=== PATIENT | female | born 1935 | race Caucasian/White ===

== ENCOUNTER 2016-06-18 19:10 | Inpatient (IN) | payer MEDICARE, BC ==
[2016-06-18] MEDS ORDERED: ACETAMINOPHEN TAB 325 MG TAB PO STA (19:29)
[2016-06-18] MEDS ORDERED: ALPRAZolam 0.25 MG TAB PO STA (19:31)
[2016-06-18] MEDS ORDERED: SODIUM CHLORIDE 0.9% 1,000 ML IV STA (19:31)
[2016-06-18] MEDS ORDERED: IPRATROPIUM-ALBUTEROL 3 ML NEB INHALATION STA (19:32)
--- NOTE | 2016-06-18 19:37 | ED ---
General Adult HPI - General Chief complaint: Shortness of Breath Stated complaint: maximiliano Time Seen by Provider: 06/18/16 19:23 Source: patient, family, EMS, RN notes reviewed Mode of arrival: EMS Limitations: no limitations - History of Present Illness Initial comments: Patient is a pleasant 81-year-old female presenting to the emergency department with difficulty in breathing. Onset was just today. Patient does have cough. Patient complains of chest congestion however cough is not productive. Patient was sweaty earlier. Patient has some mild tightness in her chest. No rhinorrhea. No leg pain or leg swelling. - Related Data Home Medications Medication Instructions Recorded Confirmed Budesonide [Pulmicort] 0.5 mg INHALATION RT-BID 08/22/13 01/29/16 Citalopram Hydrobromide [CeleXA] 10 mg PO DAILY 08/22/13 01/29/16 Diazepam [Valium] 15 mg PO HS PRN 08/22/13 01/29/16 Levothyroxine Sodium [Levoxyl] 50 mcg PO DAILY 08/22/13 01/29/16 Rivaroxaban [Xarelto] 20 mg PO DAILY 08/22/13 01/29/16 Spironolactone [Aldactone] 25 mg PO DAILY 08/22/13 01/29/16 Epinastine Eye Drops 1 drop BOTH EYES BID 01/29/16 01/29/16 Sucralfate [Carafate] 1 gm PO QID 01/29/16 01/29/16 Bumetanide [BUMEX] 1 mg PO SUTUTHSA 01/30/16 01/30/16 Bumetanide [Bumex] 2 mg PO MOWEFR 06/18/16 06/18/16 Polyethylene Glycol 3350 [Miralax] 17 gm PO HS 06/18/16 06/18/16 cloNIDine HCL [Catapres] 0.1 mg PO DAILY PRN 06/18/16 06/18/16 Previous Rx's Medication Instructions Recorded Nitroglycerin Sl Tabs [Nitrostat] 0.4 mg SUBLINGUAL Q5M PRN #25 tab 02/02/16 Allergies Allergy/AdvReac Type Severity Reaction Status Date / Time albuterol [From DuoNeb] Allergy Itching Verified 06/18/16 19:43 ampicillin Allergy Unknown Verified 06/18/16 19:43 aspirin Allergy Nausea & Verified 06/18/16 19:43 Vomiting atenolol [From Tenormin] Allergy Unknown Verified 06/18/16 19:43 atorvastatin calcium Allergy Unknown Verified 06/18/16 19:43 [From Lipitor] budesonide [From Symbicort] Allergy Itching Verified 06/18/16 19:43 ezetimibe [From Zetia] Allergy Unknown Verified 06/18/16 19:43 fluoxetine HCl [From Prozac] Allergy Unknown Verified 06/18/16 19:43 fluticasone Allergy Itching Verified 06/18/16 19:43 [From Advair Diskus] formoterol [From Symbicort] Allergy Itching Verified 06/18/16 19:43 ipratropium [From DuoNeb] Allergy Itching Verified 06/18/16 19:43 metoprolol tartrate Allergy Unknown Verified 06/18/16 19:43 [From Lopressor] mirtazapine Allergy Unknown Verified 06/18/16 19:43 morphine Allergy Unknown Verified 06/18/16 19:43 oxycodone [Oxycodone] Allergy Unknown Verified 06/18/16 19:43 oxycodone HCl [From Percocet] Allergy Unknown Verified 06/18/16 19:43 propranolol HCl Allergy Unknown Verified 06/18/16 19:43 [From Inderal LA] salmeterol Allergy Itching Verified 06/18/16 19:43 [From Advair Diskus] Sulfa (Sulfonamide Allergy Unknown Verified 06/18/16 19:43 Antibiotics) verapamil [Verapamil] Allergy Unknown Verified 06/18/16 19:43 Review of Systems ROS Statement: Those systems with pertinent positive or pertinent negative responses have been documented in the HPI. ROS Other: All systems not noted in ROS Statement are negative. Constitutional: Reports: chills Eyes: Denies: eye pain ENT: Denies: ear pain Respiratory: Reports: cough, dyspnea Cardiovascular: Reports: chest pain Endocrine: Reports: fatigue Gastrointestinal: Denies: abdominal pain Genitourinary: Denies: dysuria Musculoskeletal: Denies: back pain Skin: Denies: rash Neurological: Denies: weakness Past Medical History Past Medical History: Atrial Fibrillation, Heart Failure, COPD, Hypertension, Thyroid Disorder Last Myocardial Infarction Date:: 1985 History of Any Multi-Drug Resistant Organisms: None Reported Past Surgical History: Back Surgery, Cholecystectomy, Hernia Repair, Hysterectomy Additional Past Surgical History / Comment(s): tear duct surg Past Anesthesia/Blood Transfusion Reactions: No Reported Reaction Past Psychological History: Anxiety, Depression Smoking Status: Former smoker Past Alcohol Use History: None Reported Past Drug Use History: None Reported - Past Family History Mother Family Medical History: Diabetes Mellitus, Hypertension General Exam Limitations: no limitations General appearance: alert, in no apparent distress Head exam: Present: atraumatic Eye exam: Present: normal appearance, PERRL ENT exam: Present: normal oropharynx Neck exam: Present: normal inspection Respiratory exam: Present: decreased breath sounds Cardiovascular Exam: Present: tachycardia, irregular rhythm GI/Abdominal exam: Present: soft. Absent: tenderness Extremities exam: Present: normal inspection Neurological exam: Present: alert Psychiatric exam: Present: normal affect, normal mood Skin exam: Absent: rash Course Vital Signs 06/18/16 06/18/16 06/18/16 19:12 20:44 20:54 Temperature 99.3 F Pulse Rate 59 L 97 110 H Respiratory 20 Rate Blood Pressure 184/91 O2 Sat by Pulse 92 L Oximetry 06/18/16 06/18/16 06/18/16 21:00 21:39 22:56 Temperature Pulse Rate 95 95 92 Respiratory 20 18 18 Rate Blood Pressure 128/71 142/74 142/77 O2 Sat by Pulse 95 96 95 Oximetry EKG Findings - EKG Comments: EKG Findings:: A. fib with RVR, rate 122. QRS 100. QT 304. QTC 433. Normal axis. LVH criteria. Septal Q waves. Lateral ST depression. Medical Decision Making - Medical Decision Making Patient reevaluated. Patient and family updated. Case discussed again with Dr. Alvarez, who will admit his patient with cardiology consult. - Lab Data Result diagrams: 06/18/16 19:37 06/18/16 19:37 Lab Results 06/18/16 06/18/16 06/18/16 Range/Units 19:37 19:37 19:37 WBC 9.2 (3.8-10.6) k/uL RBC 5.12 (3.80-5.40) m/uL Hgb 14.5 (11.4-16.0) gm/dL Hct 45.5 (34.0-46.0) % MCV 88.9 (80.0-100.0) fL MCH 28.2 (25.0-35.0) pg MCHC 31.7 (31.0-37.0) g/dL RDW 16.4 H (11.5-15.5) % Plt Count 139 L (150-450) k/uL Neutrophils % (Manual) 70.0 % Lymphocytes % (Manual) 18.0 % Monocytes % (Manual) 11.0 % Eosinophils % (Manual) 1.0 % Neutrophils # (Manual) 6.4 (1.3-7.7) k/uL Lymphocytes # (Manual) 1.7 (1.0-4.8) k/uL Monocytes # (Manual) 1.0 (0-1.0) k/uL Eosinophils # (Manual) 0.1 (0-0.7) k/uL Nucleated RBCs 0 (0-0) /100 WBC Manual Slide Review Performed Anisocytosis Slight PT (9.0-12.0) sec INR (<1.1) APTT (22.0-30.0) sec Sodium 139 (137-145) mmol/L Potassium 3.9 (3.5-5.1) mmol/L Chloride 99 (98-107) mmol/L Carbon Dioxide 24 (22-30) mmol/L Anion Gap 16 mmol/L BUN 36 H (7-17) mg/dL Creatinine 1.00 (0.52-1.04) mg/dL Est GFR (MDRD) Af Amer >60 (>60 ml/min/1.73 sqM) Est GFR (MDRD) Non-Af 53 (>60 ml/min/1.73 sqM) Glucose 151 H (74-99) mg/dL Plasma Lactic Acid Mason (0.7-2.0) mmol/L Calcium 9.8 (8.4-10.2) mg/dL Total Bilirubin 1.0 (0.2-1.3) mg/dL AST 28 (14-36) U/L ALT 40 (9-52) U/L Alkaline Phosphatase 114 (38-126) U/L Total Creatine Kinase 47 (30-135) U/L CK-MB (CK-2) 1.1 (0.0-2.4) ng/mL CK-MB (CK-2) Rel Index 2.3 Troponin I <0.012 (0.000-0.034) ng/mL NT-Pro-B Natriuret Pep pg/mL Total Protein 6.6 (6.3-8.2) g/dL Albumin 3.8 (3.5-5.0) g/dL Cortisol 117 ug/dL Urine Color Urine Appearance (Clear) Urine pH (5.0-8.0) Ur Specific Melville (1.001-1.035) Urine Protein (Negative) Urine Glucose (UA) (Negative) Urine Ketones (Negative) Urine Blood (Negative) Urine Nitrite (Negative) Urine Bilirubin (Negative) Urine Urobilinogen (<2.0) mg/dL Ur Leukocyte Esterase (Negative) Urine RBC (0-5) /hpf Urine WBC (0-5) /hpf Hyaline Casts (0-2) /lpf Urine Mucus (None) /hpf Influenza Type A RNA (Not Detectd) Influenza Type B (PCR) (Not Detectd) 06/18/16 06/18/16 06/18/16 Range/Units 19:37 19:37 20:01 WBC (3.8-10.6) k/uL RBC (3.80-5.40) m/uL Hgb (11.4-16.0) gm/dL Hct (34.0-46.0) % MCV (80.0-100.0) fL MCH (25.0-35.0) pg MCHC (31.0-37.0) g/dL RDW (11.5-15.5) % Plt Count (150-450) k/uL Neutrophils % (Manual) % Lymphocytes % (Manual) % Monocytes % (Manual) % Eosinophils % (Manual) % Neutrophils # (Manual) (1.3-7.7) k/uL Lymphocytes # (Manual) (1.0-4.8) k/uL Monocytes # (Manual) (0-1.0) k/uL Eosinophils # (Manual) (0-0.7) k/uL Nucleated RBCs (0-0) /100 WBC Manual Slide Review Anisocytosis PT 12.0 (9.0-12.0) sec INR 1.2 (<1.1) APTT 29.1 (22.0-30.0) sec Sodium (137-145) mmol/L Potassium (3.5-5.1) mmol/L Chloride (98-107) mmol/L Carbon Dioxide (22-30) mmol/L Anion Gap mmol/L BUN (7-17) mg/dL Creatinine (0.52-1.04) mg/dL Est GFR (MDRD) Af Amer (>60 ml/min/1.73 sqM) Est GFR (MDRD) Non-Af (>60 ml/min/1.73 sqM) Glucose (74-99) mg/dL Plasma Lactic Acid Mason 2.7 H* (0.7-2.0) mmol/L Calcium (8.4-10.2) mg/dL Total Bilirubin (0.2-1.3) mg/dL AST (14-36) U/L ALT (9-52) U/L Alkaline Phosphatase (38-126) U/L Total Creatine Kinase (30-135) U/L CK-MB (CK-2) (0.0-2.4) ng/mL CK-MB (CK-2) Rel Index Troponin I (0.000-0.034) ng/mL NT-Pro-B Natriuret Pep 4750 pg/mL Total Protein (6.3-8.2) g/dL Albumin (3.5-5.0) g/dL Cortisol ug/dL Urine Color Urine Appearance (Clear) Urine pH (5.0-8.0) Ur Specific Melville (1.001-1.035) Urine Protein (Negative) Urine Glucose (UA) (Negative) Urine Ketones (Negative) Urine Blood (Negative) Urine Nitrite (Negative) Urine Bilirubin (Negative) Urine Urobilinogen (<2.0) mg/dL Ur Leukocyte Esterase (Negative) Urine RBC (0-5) /hpf Urine WBC (0-5) /hpf Hyaline Casts (0-2) /lpf Urine Mucus (None) /hpf Influenza Type A RNA (Not Detectd) Influenza Type B (PCR) (Not Detectd) 06/18/16 06/18/16 06/18/16 Range/Units 20:01 20:01 23:32 WBC (3.8-10.6) k/uL RBC (3.80-5.40) m/uL Hgb (11.4-16.0) gm/dL Hct (34.0-46.0) % MCV (80.0-100.0) fL MCH (25.0-35.0) pg MCHC (31.0-37.0) g/dL RDW (11.5-15.5) % Plt Count (150-450) k/uL Neutrophils % (Manual) % Lymphocytes % (Manual) % Monocytes % (Manual) % Eosinophils % (Manual) % Neutrophils # (Manual) (1.3-7.7) k/uL Lymphocytes # (Manual) (1.0-4.8) k/uL Monocytes # (Manual) (0-1.0) k/uL Eosinophils # (Manual) (0-0.7) k/uL Nucleated RBCs (0-0) /100 WBC Manual Slide Review Anisocytosis PT (9.0-12.0) sec INR (<1.1) APTT (22.0-30.0) sec Sodium (137-145) mmol/L Potassium (3.5-5.1) mmol/L Chloride (98-107) mmol/L Carbon Dioxide (22-30) mmol/L Anion Gap mmol/L BUN (7-17) mg/dL Creatinine (0.52-1.04) mg/dL Est GFR (MDRD) Af Amer (>60 ml/min/1.73 sqM) Est GFR (MDRD) Non-Af (>60 ml/min/1.73 sqM) Glucose (74-99) mg/dL Plasma Lactic Acid Mason 2.6 H* (0.7-2.0) mmol/L Calcium (8.4-10.2) mg/dL Total Bilirubin (0.2-1.3) mg/dL AST (14-36) U/L ALT (9-52) U/L Alkaline Phosphatase (38-126) U/L Total Creatine Kinase (30-135) U/L CK-MB (CK-2) (0.0-2.4) ng/mL CK-MB (CK-2) Rel Index Troponin I (0.000-0.034) ng/mL NT-Pro-B Natriuret Pep pg/mL Total Protein (6.3-8.2) g/dL Albumin (3.5-5.0) g/dL Cortisol ug/dL Urine Color Yellow Urine Appearance Cloudy H (Clear) Urine pH 5.0 (5.0-8.0) Ur Specific Melville 1.009 (1.001-1.035) Urine Protein Trace H (Negative) Urine Glucose (UA) Negative (Negative) Urine Ketones Negative (Negative) Urine Blood Negative (Negative) Urine Nitrite Negative (Negative) Urine Bilirubin Negative (Negative) Urine Urobilinogen <2.0 (<2.0) mg/dL Ur Leukocyte Esterase Negative (Negative) Urine RBC 2 (0-5) /hpf Urine WBC <1 (0-5) /hpf Hyaline Casts 3 H (0-2) /lpf Urine Mucus Rare H (None) /hpf Influenza Type A RNA Not Detected (Not Detectd) Influenza Type B (PCR) Not Detected (Not Detectd) - Radiology Data Radiology results: image reviewed (Chest x-ray shows CHF) Disposition Clinical Impression: Congestive heart failure Disposition: ADMITTED IP TO THIS HOSP
[2016-06-18 19:46] LABS: Anisocytosis Slight; Aty Lym Flag Slight; CHCM 31.7; HCT 45.5 % (34.0-46.0); HDW 2.48; HGB 14.5 gm/dL (11.4-16.0); MCH 28.2 pg (25.0-35.0); MCHC 31.7 g/dL (31.0-37.0); MCV 88.9 fL (80.0-100.0); Mean Platelet Volume 8.5; RBC 5.12 m/uL (3.80-5.40); RDW 16.4 % (11.5-15.5); WBC 9.2 k/uL (3.8-10.6); WBC (Perox) 8.96
[2016-06-18 20:03] LABS: INR 1.2 (<1.1); Partial Thromboplastin Time 29.1 sec (22.0-30.0)
[2016-06-18 20:08] LABS: Creatine Kinase 47 U/L (30-135)
[2016-06-18 20:09] LABS: ALT 40 U/L (9-52); AST 28 U/L (14-36); Alkaline Phosphatase 114 U/L (38-126); Anion Gap 16 mmol/L; Blood Urea Nitrogen 36 mg/dL (7-17); Calcium 9.8 mg/dL (8.4-10.2); Carbon Dioxide 24 mmol/L (22-30); Chloride 99 mmol/L (98-107); Glucose 151 mg/dL (74-99); Non-African American GFR(MDRD) 53 (>60 ml/min/1.73 sqM); Potassium 3.9 mmol/L (3.5-5.1); Sodium 139 mmol/L (137-145); Total Protein 6.6 g/dL (6.3-8.2)
[2016-06-18 20:20] LABS: Creatine Kinase MB 1.1 ng/mL (0.0-2.4); Troponin I <0.012 ng/mL (0.000-0.034)
[2016-06-18 20:30] LABS: Appearance,Urine Cloudy (Clear); Bilirubin,Urine Negative (Negative); Glucose,Urine (UA) Negative (Negative); Ketones,Urine Negative (Negative); Leukocyte Esterase,Urine Negative (Negative); Mucus,Urine Rare /hpf; Nitrite,Urine Negative (Negative); Particle Count 1743; Protein,Urine Trace (Negative); RBC,Urine 2 /hpf (0-5); Specific Gravity,Urine 1.009 (1.001-1.035); UA Billing (MACRO vs. MICRO) MICRO; Urobilinogen,Urine <2.0 mg/dL (<2.0); WBC,Urine <1 /hpf (0-5)
[2016-06-18] MEDS ORDERED: ALBUTEROL NEBULIZED 2.5 MG/3 ML INHALATION STA (20:40)
--- NOTE | 2016-06-18 20:47 | XR ---
EXAMINATION TYPE: XR chest 2V DATE OF EXAM: 06/18/2016 8:29 PM COMPARISON: 01/29/2016 HISTORY: 01/29/2016 TECHNIQUE: Frontal and lateral views of the chest are obtained. FINDINGS: Senescent changes are noted. There is subtle evidence of a new reticular pattern bilateral ly, this pattern silhouettes the pulmonary vasculature to a mild/moderate degree and is compatible wi th a clinical diagnosis of interstitial phase pulmonary edema. Given the moderately enlarged chronic silhouette, cardiogenic pulmonary edema is suggested. There is no atelectasis or focal lung consolidation, but the interstitial pattern could also represen t infection if clinically corroborated. There is no pleural effusion or pneumothorax. The cardiac silhouette size is within normal limits. The osseous structures are intact. IMPRESSION: SUSPECT MILD-MODERATE INTERSTITIAL PHASE CARDIOGENIC PULMONARY EDEMA.
[2016-06-18 20:54] LABS: Add Differential Manual Differential
[2016-06-18 20:57] LABS: Manual Review Performed; Nucleated Red Blood Cells 0 /100 WBC (0-0); Total Cells Counted 100
[2016-06-18] MEDS ORDERED: ONDANSETRON 4 MG/2 ML VIAL IM STA (22:07)
[2016-06-18] MEDS ORDERED: FUROSEMIDE 10 MG/ML 4 ML VIAL IV STA (22:38)
[2016-06-19] MEDS ORDERED: ASPIRIN 325 MG TAB PO STA (00:27)
[2016-06-19] MEDS: NITROGLYCERIN OINT 1 INCH/GM PACKET TOPICAL SCH ×5 (01:05→20:33)
[2016-06-19] MEDS: FUROSEMIDE 10 MG/ML 4 ML VIAL IV SCH ×2 (01:05→13:03)
[2016-06-19] MEDS: POLYETHYLENE GLYCOL 3350 17 GM POWD.PACK PO SCH ×2 (03:28→20:32)
[2016-06-19 03:37] LABS: Troponin I 0.012 ng/mL (0.000-0.034)
[2016-06-19] MEDS ORDERED: DIAZEPAM 5 MG TAB PO PRN (03:45)
[2016-06-19] MEDS ORDERED: BUMETANIDE 1 MG TAB PO SCH ×2 (03:45→09:00)
[2016-06-19] MEDS ORDERED: cloNIDine HCL 0.1 MG TAB PO PRN (03:45)
[2016-06-19 07:42] LABS: Creatine Kinase 49 U/L (30-135)
[2016-06-19 07:53] LABS: Creatine Kinase MB 1.1 ng/mL (0.0-2.4); Troponin I <0.012 ng/mL (0.000-0.034)
[2016-06-19] MEDS: BUDESONIDE 0.5 MG/2 ML NEBU INHALATION SCH ×2 (08:26→20:19)
[2016-06-19] MEDS ORDERED: [UNRECOGNIZED DRUG - OTHER] BOTH EYES SCH (09:00)
[2016-06-19] MEDS ORDERED: RIVAROXABAN 10 MG TAB PO SCH (09:00)
[2016-06-19] MEDS: SUCRALFATE 1 GM TAB PO SCH ×4 (09:38→20:34)
[2016-06-19] MEDS: CITALOPRAM HYDROBROMIDE 10 MG TAB PO SCH (09:38)
[2016-06-19] MEDS: ASPIRIN 325 MG TAB PO SCH (09:39)
[2016-06-19] MEDS: LEVOTHYROXINE 50 MCG TAB PO SCH (09:40)
[2016-06-19] MEDS: SPIRONOLACTONE 25 MG TAB PO SCH (09:40)
--- NOTE | 2016-06-19 12:42 | CONS ---
DATE OF CONSULTATION: Mrs. Faith is an 81-year-old female who came to the emergency room with the complaint of difficulty in breathing. She does have some cough, denies any fever or chills. Patient was found to be in heart failure. This patient has a history of severe COPD, chronic atrial fibrillation and mild nonobstructive pulmonary artery disease. Home medications included Pulmicort, Valium, Xarelto, Aldactone, Bumex, clonidine. Patient's allergies are reviewed. Past medical history includes back surgery, cholecystectomy, hernia repair, hysterectomy, chronic atrial fibrillation, COPD, and heart failure. Physical examination at present reveals an 81-year-old female who is thinly-built, has severe kyphoscoliosis. She is comfortable, not in any acute respiratory distress at present. The patient's heart rate at present is 90 to 100/min. Blood pressure is 126/69 mmHg, patient is afebrile. HEENT examination is negative. Neck is supple. There is no increase in jugular venous pressure. Both the carotid pulses are felt. There is no bruit. Chest is symmetrical. HEART: The PMI is not felt. First and second heart sounds are normal. Lung examination reveals bilateral crackles. Abdomen is soft. EXTREMITIES: There is no evidence of any leg edema. Chest x-ray is suggestive of congestive heart failure with possible interstitial pulmonary fibrosis cannot be entirely excluded. Patient's proBNP level is 4750. FINAL IMPRESSION: 1. This patient is admitted with symptoms of shortness of breath, which is secondary to a combination of congestive heart failure and COPD. 2. Atrial fibrillation with a moderately rapid ventricular response. 3. History of coronary artery disease, which was mild in the past. RECOMMENDATIONS: I will add Lopressor 25 mg b.i.d. to control the rate, continue the rest of the medications. Patient's echo and Doppler study will be done.
[2016-06-19] MEDS: ONDANSETRON 4 MG/2 ML VIAL IVP PRN (13:00)
[2016-06-19] MEDS: IPRATROPIUM BROMIDE 0.06% NASAL SPRAY (15 ML) NASAL SCH ×2 (13:00→20:32)
--- NOTE | 2016-06-19 13:59 | P.HPIM ---
History of Present Illness H&P Date: 06/19/16 Chief Complaint: Difficulty breathing This is an 81-year-old female patient of Dr. Alvarez. She has underlying history of chronic atrial fibrillation, COPD, chronic diastolic heart failure, hypothyroidism and hypertension, essential tremor, chronic hypoxic respiratory failure with home O2 dependence, pulmonary fibrosis. Patient states that she had shortness of breath that started a couple days ago with cough that was nonproductive. She states she felt tired and weak and nauseated and achy all over. She denies any weight loss. Patient presented to [facility] emergency center. Initial blood pressure was 184/ 91 and EKG showed A. fib with RVR at a rate of 122. Chest x-ray showed suspected mild to moderate interstitial cardiogenic pulmonary edema. Blood cultures were obtained. Platelet count was 139. No leukocytosis. Lactic acid was 2.7, 2.6 and 2.9. Troponins have been negative on 3 draws. Urinalysis was cloudy, nitrate and leukoesterase negative. Influenza A and B negative. Patient was admitted to the selective care unit for acute heart failure and started on Lasix 40 mg IV every 12 hours and cardiology consult requested. Review of Systems All systems: negative Constitutional: Reports fatigue, Reports sweats, Reports weakness, Denies chills , Denies fever Eyes: denies blurred vision, denies pain Ears, nose, mouth and throat: Denies headache, Denies sore throat Cardiovascular: Reports shortness of breath, Denies chest pain, Denies leg edema Respiratory: Reports cough, Reports dyspnea, Reports home oxygen, Denies cough with sputum, Denies excessive sputum, Denies hemoptysis Gastrointestinal: Reports nausea, Denies abdominal pain, Denies diarrhea, Denies vomiting Genitourinary: Denies dysuria, Denies hematuria Musculoskeletal: Denies myalgias Integumentary: Denies pruritus, Denies rash Neurological: Denies numbness, Denies weakness Psychiatric: Denies anxiety, Denies depression Endocrine: Denies fatigue, Denies weight change Past Medical History Past Medical History: Atrial Fibrillation, Heart Failure, COPD, Hypertension, Myocardial Infarction (CT), Thyroid Disorder Last Myocardial Infarction Date:: 1985 History of Any Multi-Drug Resistant Organisms: None Reported Past Surgical History: Back Surgery, Cholecystectomy, Hernia Repair, Hysterectomy Additional Past Surgical History / Comment(s): tear duct surg Past Anesthesia/Blood Transfusion Reactions: No Reported Reaction Past Psychological History: Anxiety, Depression Smoking Status: Former smoker Past Alcohol Use History: None Reported Additional Past Alcohol Use History / Comment(s): She was a smoker one pack per day for 30-40 years and quit 45 years ago. No illicit drug use or alcohol use. Patient lives at home and her son and [id number] live with her. She has a walker and cane which she uses occasionally. She also has home O2 and nebulizer. Past Drug Use History: None Reported - Past Family History Mother Family Medical History: Diabetes Mellitus, Hypertension Additional Family Medical History / Comment(s): Mother at age 65 with history of diabetes and hypertension. Father Additional Family Medical History / Comment(s): Father at age 64 from unknown cancer. Brother(s) Additional Family Medical History / Comment(s): Patient has 2 half brothers that during war. She does not have any sisters. Son(s) Additional Family Medical History / Comment(s): She has one son with no major medical problems. Medications and Allergies Home Medications Medication Instructions Recorded Confirmed Type Budesonide [Pulmicort] 0.5 mg INHALATION RT-BID 08/22/13 06/19/16 History Citalopram Hydrobromide [CeleXA] 10 mg PO DAILY 08/22/13 06/19/16 History Diazepam [Valium] 15 mg PO HS PRN 08/22/13 06/19/16 History Levothyroxine Sodium [Levoxyl] 50 mcg PO DAILY 08/22/13 06/19/16 History Rivaroxaban [Xarelto] 20 mg PO DAILY 08/22/13 06/19/16 History Spironolactone [Aldactone] 25 mg PO DAILY 08/22/13 06/19/16 History Epinastine Eye Drops 1 drop BOTH EYES BID 01/29/16 06/19/16 History Sucralfate [Carafate] 1 gm PO QID 01/29/16 06/19/16 History Bumetanide [BUMEX] 1 mg PO SUTUTHSA 01/30/16 06/19/16 History Bumetanide [Bumex] 2 mg PO MOWEFR 06/18/16 06/19/16 History Polyethylene Glycol 3350 [Miralax] 17 gm PO HS 06/18/16 06/19/16 History cloNIDine HCL [Catapres] 0.1 mg PO DAILY PRN 06/18/16 06/19/16 History Allergies Allergy/AdvReac Type Severity Reaction Status Date / Time albuterol [From DuoNeb] Allergy Itching Verified 06/18/16 19:43 ampicillin Allergy Unknown Verified 06/18/16 19:43 aspirin Allergy Nausea & Verified 06/18/16 19:43 Vomiting atenolol [From Tenormin] Allergy Unknown Verified 06/18/16 19:43 atorvastatin calcium Allergy Unknown Verified 06/18/16 19:43 [From Lipitor] budesonide [From Symbicort] Allergy Itching Verified 06/18/16 19:43 ezetimibe [From Zetia] Allergy Unknown Verified 06/18/16 19:43 fluoxetine HCl [From Prozac] Allergy Unknown Verified 06/18/16 19:43 fluticasone Allergy Itching Verified 06/18/16 19:43 [From Advair Diskus] formoterol [From Symbicort] Allergy Itching Verified 06/18/16 19:43 ipratropium [From DuoNeb] Allergy Itching Verified 06/18/16 19:43 metoprolol tartrate Allergy Unknown Verified 06/18/16 19:43 [From Lopressor] mirtazapine Allergy Unknown Verified 06/18/16 19:43 morphine Allergy Unknown Verified 06/18/16 19:43 oxycodone [Oxycodone] Allergy Unknown Verified 06/18/16 19:43 oxycodone HCl [From Percocet] Allergy Unknown Verified 06/18/16 19:43 propranolol HCl Allergy Unknown Verified 06/18/16 19:43 [From Inderal LA] salmeterol Allergy Itching Verified 06/18/16 19:43 [From Advair Diskus] Sulfa (Sulfonamide Allergy Unknown Verified 06/18/16 19:43 Antibiotics) verapamil [Verapamil] Allergy Unknown Verified 06/18/16 19:43 Physical Exam Vitals: Vital Signs Temp Pulse Pulse Resp BP BP Pulse Ox 06/19/16 08:33 100 06/19/16 02:19 18 06/19/16 02:16 98.2 F 70 18 135/67 96 06/19/16 01:01 87 18 137/73 94 L Intake and Output 06/18/16 06/19/16 06/19/16 22:59 06:59 14:59 Intake Total 200 298 Output Total 250 Balance -50 298 Intake: Oral 200 298 Output: Urine 250 Other: Voiding Method Bedside Commode Weight 42.4 kg General appearance: cooperative, no acute distress, thin. negative: average body habitus, disheveled, mild distress, morbidly obese, obese, severe distress - EENT Eyes: Reports anicteric sclerae, Reports PERRLA, Reports dentition normal, Reports poor dentition ENT: Reports hard of hearing, Reports NA/AT, Reports normal oropharynx, Denies hearing grossly normal, Denies other, Denies pharyngeal erythema, Denies thrush , Denies tonsillar exudates, Denies tonsillar swelling - Neck Neck: Reports normal ROM, Denies lymphadenopathy, Denies other, Denies rigidity , Denies stridor, Denies thyromegaly - Respiratory Respiratory: bilateral: CTA, diminished, negative: dullness, rales, rhonchi, wheezing, prolonged expiration - Cardiovascular Rhythm: regular Heart sounds: normal: S1, S2 Abnormal Heart Sounds: Reports systolic murmur, Denies diastolic murmur, Denies rub, Denies S3 Gallop, Denies S4 Gallop, Denies click, Denies other - Gastrointestinal General gastrointestinal: Reports normal bowel sounds, Reports soft, Denies absent bowel sounds, Denies decreased bowel sounds, Denies distended, Denies hepatomegaly, Denies hyperactive bowel sounds, Denies organomegaly, Denies rigid , Denies scaphoid, Denies splenomegaly, Denies tenderness, Denies umbilical hernia, Denies ventral hernia - Integumentary Integumentary: Reports normal, Reports normal turgor - Neurologic Neurologic: CNII-XII intact, focal deficits (none) - Musculoskeletal Musculoskeletal: Reports generalized weakness (tremors generalized) - Psychiatric Psychiatric: Reports A&O x's 3, Reports appropriate affect, Reports intact judgment & insight Results CBC & Chem 7: 06/18/16 19:37 06/18/16 19:37 Labs: Abnormal Lab Results - Last 24 Hours (Table) 06/19/16 Range/Units 02:51 Plasma Lactic Acid Mason 2.9 H* (0.7-2.0) mmol/L Thrombosis Risk Factor Assmnt - DVT/VTE Prophylaxis DVT/VTE Prophylaxis: Pharmacologic Prophylaxis ordered - Choose All That Apply Any of the Below Risk Factors Present?: Yes Each Factor Represents 1 point: Abnormal pulmonary function (COPD), Heart failure (<1month) Other Risk Factors: Yes Each Risk Factor Represents 3 Points: Age 75 years or older Thrombosis Risk Factor Assessment Total Risk Factor Score: 5 Thrombosis Risk Factor Assessment Level: High Risk Assessment and Plan Plan: 1. Difficulty breathing due to acute on chronic diastolic heart failure with known ejection fraction 55-60% with mild aortic regurgitation, severe mitral regurgitation, mild tricuspid regurgitation and moderate pulmonary hypertension with moderate concentric left ventricular hypertrophy and severely dilated greater than 40, mild aortic valve sclerosis without stenosis. Cardiology consult appreciated. Patient is on Lasix 40 mg IV every 12 hours, Aldactone 25 mg daily. Monitor I&O and daily weights and electrolytes. Patient is normally on Bumex 1 mg on Thursday, Thursday, Thursday. 2. COPD, stable. Continue Pulmicort 3. Pulmonary fibrosis on CAT scan of the chest. 4. Chronic atrial fibrillation presenting with rapid ventricular response . Continue Xarelto. 5. Chronic hypoxic respiratory failure with with home O2 at 2 L nasal cannula. 6. Hypertension. Continue Catapres and Aldactone. 7. Severe mitral regurgitation and mild mitral valve prolapse 8. Hyperglycemia with no previous diagnosis of diabetes mellitus. Recent hemoglobin A1c was 5.9. 9. BMI of 16 with severe protein calorie malnutrition. Protein supplementation and dietitian consult. 10. Tremors with essential tremors. 11. GERD and gastrointestinal prophylaxis. Continue Carafate. 12. CAD with prior CT in 1985. 13. Hypothyroidismon. Continue levothyroxine 50 g daily. 14. DVT prophylaxis. Continue Xarelto. She will be admitted to the hospital for a minimum of 2 night stay. Discharge plan: To be determined Impression and plan of care have been directed as dictated by the signing physician. Gillian Ross nurse practitioner acting as scribe for signing physician. Time with Patient: Greater than 30
[2016-06-19] MEDS: ACETAMINOPHEN TAB 325 MG TAB PO PRN (20:31)
[2016-06-19] MEDS ORDERED: METOPROLOL TARTRATE 25 MG TAB PO SCH (21:00)
[2016-06-20] MEDS: FUROSEMIDE 10 MG/ML 4 ML VIAL IV SCH ×2 (03:21→11:42)
[2016-06-20] MEDS ORDERED: BUMETANIDE 1 MG TAB PO SCH ×2 (03:45→09:00)
[2016-06-20] MEDS: ONDANSETRON 4 MG/2 ML VIAL IVP PRN (04:22)
[2016-06-20] MEDS: ACETAMINOPHEN TAB 325 MG TAB PO PRN (04:31)
[2016-06-20 06:16] LABS: Anisocytosis Slight; CH 27.5; CHCM 30.9; HCT 41.9 % (34.0-46.0); HDW 2.34; HGB 12.9 gm/dL (11.4-16.0); Hypochromasia Slight; MCH 27.5 pg (25.0-35.0); MCHC 30.8 g/dL (31.0-37.0); MCV 89.4 fL (80.0-100.0); Mean Platelet Volume 7.6; RBC 4.69 m/uL (3.80-5.40); RDW 16.1 % (11.5-15.5); WBC 9.7 k/uL (3.8-10.6)
[2016-06-20 06:39] LABS: Calcium 10.2 mg/dL (8.4-10.2); Total Bilirubin 0.8 mg/dL (0.2-1.3); Total Protein 6.4 g/dL (6.3-8.2)
[2016-06-20 06:48] LABS: Potassium 4.8 mmol/L (3.5-5.1)
[2016-06-20] MEDS: IPRATROPIUM BROMIDE 0.06% NASAL SPRAY (15 ML) NASAL SCH ×2 (07:39→17:41)
[2016-06-20] MEDS: BUDESONIDE 0.5 MG/2 ML NEBU INHALATION SCH ×2 (07:58→20:21)
[2016-06-20] MEDS: CITALOPRAM HYDROBROMIDE 10 MG TAB PO SCH (08:50)
[2016-06-20] MEDS: ASPIRIN 325 MG TAB PO SCH (08:50)
[2016-06-20] MEDS: SUCRALFATE 1 GM TAB PO SCH ×4 (08:51→20:18)
[2016-06-20] MEDS: SPIRONOLACTONE 25 MG TAB PO SCH (08:52)
[2016-06-20] MEDS: NITROGLYCERIN OINT 1 INCH/GM PACKET TOPICAL SCH ×4 (08:52→20:17)
[2016-06-20] MEDS: LEVOTHYROXINE 50 MCG TAB PO SCH (08:52)
--- NOTE | 2016-06-20 08:59 | ECHOF ---
Referral Reason:chf MEASUREMENTS -------- HEIGHT: 160.0 cm WEIGHT: 42.2 kg BP: 126/69 RVIDd: 3.5 cm (< 3.3) IVSd: 1.4 cm (0.6 - 1.1) LVIDd: 3.8 cm (3.9 - 5.3) LVPWd: 1.2 cm (0.6 - 1.1) IVSs: 1.8 cm LVIDs: 2.4 cm LVPWs: 1.7 cm LA Diam: 3.9 cm (2.7 - 3.8) LAESV Index (A-L): 91.93 ml/m Ao Diam: 2.8 cm (2.0 - 3.7) AV Cusp: 2.1 cm (1.5 - 2.6) MV EXCURSION: 23.601 mm (> 18.000) MV EF SLOPE: 71 mm/s (70 - 150) EPSS: 0.3 cm RAP: 5.00 mmHg RVSP: 56.53 mmHg FINDINGS -------- Atrial fibrillation. This was a technically adequate study. There is moderate concentric left ventricular hypertrophy. Overall left ventricular systolic function is normal with, an EF between 55 - 60 %. The right ventricle is mildly enlarged. LA is severely dilated >40 ml/m2 The right atrium was not well visualized. Interatrial septal aneurysm. Aortic valve is trileaflet and is mildly thickened. There is mild aortic regurgitation. The mitral valve leaflets are mildly thickened. Mild mitral annular calcification present. Moderate mitral regurgitation is present. Mild tricuspid regurgitation present. There is moderate to severe pulmonary hypertension. The right ventricular systolic pressure, as measured by Doppler, is 56.53mmHg. Trace/mild (physiologic) pulmonic regurgitation. The aortic root size is normal. Normal inferior vena cava with normal inspiratory collapse consistent with estimated right atrial pressure of 5 mmHg. There is no pericardial effusion. Small Pleural Effusion. CONCLUSIONS -------- 1. Atrial fibrillation. 2. The mitral valve leaflets are mildly thickened. 3. Mild mitral annular calcification present. 4. Moderate mitral regurgitation is present. 5. Mild tricuspid regurgitation present. 6. There is moderate to severe pulmonary hypertension. 7. The right ventricular systolic pressure, as measured by Doppler, is 56.53mmHg. 8. Trace/mild (physiologic) pulmonic regurgitation. 9. The aortic root size is normal. 10. Normal inferior vena cava with normal inspiratory collapse consistent with estimated right atrial pressure of 5 mmHg. 11. There is no pericardial effusion. 12. This was a technically adequate study. 13. Small Pleural Effusion. 14. Overall left ventricular systolic function is normal with, an EF between 55 - 60 %. 15. The right ventricle is mildly enlarged. 16. LA is severely dilated >40 ml/m2 17. The right atrium was not well visualized. 18. Interatrial septal aneurysm. 19. Aortic valve is trileaflet and is mildly thickened. 20. There is mild aortic regurgitation. SECURITY RISK ANALYST: Roxie Craig RDCS
[2016-06-20] MEDS ORDERED: HYDROmorphone 1 MG/ML 1 ML SYRINGE IVP STA (10:40)
[2016-06-20] MEDS: METOCLOPRAMIDE 5 MG/ML 2 ML VIAL IVP SCH ×3 (11:42→23:34)
--- NOTE | 2016-06-20 13:49 | P.PN ---
Subjective This is an 81-year-old female patient of Dr. Alvarez. She has underlying history of chronic atrial fibrillation, COPD, chronic diastolic heart failure, hypothyroidism and hypertension, essential tremor, chronic hypoxic respiratory failure with home O2 dependence, pulmonary fibrosis. Patient states that she had shortness of breath that started a couple days ago with cough that was nonproductive. She states she felt tired and weak and nauseated and achy all over. She denies any weight loss. Patient presented to [facility] emergency center. Initial blood pressure was 184/ 91 and EKG showed A. fib with RVR at a rate of 122. Chest x-ray showed suspected mild to moderate interstitial cardiogenic pulmonary edema. Blood cultures were obtained. Platelet count was 139. No leukocytosis. Lactic acid was 2.7, 2.6 and 2.9. Troponins have been negative on 3 draws. Urinalysis was cloudy, nitrate and leukoesterase negative. Influenza A and B negative. Patient was admitted to the selective care unit for acute heart failure and started on Lasix 40 mg IV every 12 hours and cardiology consult requested. 06/20: Repeat lactic acid 1.7. BUN 48 and creatinine 1.07. Echocardiogram reveals atrial fibrillation, moderate mitral regurgitation, mild tricuspid regurgitation, moderate to severe pulmonary hypertension, small pleural effusion. She has been seen by product manufacturing professional. She did have headache this morning improved with dilaudid. She had nausea not improved with nausea. Reglan added with improvement. IV lasix changed to her home dose of bumex oral. PT eval pending due to patient's nausea this morning. Objective - Vital Signs Vital signs: Vital Signs Temp 98.8 F 06/20/16 08:00 Pulse 86 06/20/16 08:00 Resp 18 06/20/16 08:00 BP 138/79 06/20/16 08:00 Pulse Ox 94 L 06/20/16 08:00 Intake & Output 06/19/16 06/20/16 06/20/16 18:59 06:59 18:59 Intake Total 416 50 Output Total 0 800 Balance 416 -800 50 Weight 42.4 kg 41.8 kg Intake: Oral 416 50 Output: Urine 0 800 Other: Voiding Method Toilet # Voids 1 - Exam General appearance: cooperative, no acute distress, thin. negative: average body habitus, disheveled, mild distress, morbidly obese, obese, severe distress - EENT Eyes: Reports anicteric sclerae, Reports PERRLA, Reports dentition normal, Reports poor dentition ENT: Reports hard of hearing, Reports NA/AT, Reports normal oropharynx, Denies hearing grossly normal, Denies other, Denies pharyngeal erythema, Denies thrush , Denies tonsillar exudates, Denies tonsillar swelling - Neck Neck: Reports normal ROM, Denies lymphadenopathy, Denies other, Denies rigidity , Denies stridor, Denies thyromegaly - Respiratory Respiratory: bilateral: CTA, diminished, negative: dullness, rales, rhonchi, wheezing, prolonged expiration - Cardiovascular Rhythm: regular Heart sounds: normal: S1, S2 Abnormal Heart Sounds: Reports systolic murmur, Denies diastolic murmur, Denies rub, Denies S3 Gallop, Denies S4 Gallop, Denies click, Denies other - Gastrointestinal General gastrointestinal: Reports normal bowel sounds, Reports soft, Denies absent bowel sounds, Denies decreased bowel sounds, Denies distended, Denies hepatomegaly, Denies hyperactive bowel sounds, Denies organomegaly, Denies rigid , Denies scaphoid, Denies splenomegaly, Denies tenderness, Denies umbilical hernia, Denies ventral hernia - Integumentary Integumentary: Reports normal, Reports normal turgor - Neurologic Neurologic: CNII-XII intact, focal deficits (none) - Musculoskeletal Musculoskeletal: Reports generalized weakness (tremors generalized) - Psychiatric Psychiatric: Reports A&O x's 3, Reports appropriate affect, Reports intact judgment & insight - Labs CBC & Chem 7: 06/20/16 05:51 06/20/16 05:51 Labs: Abnormal Lab Results - Last 24 Hours (Table) 06/20/16 06/20/16 Range/Units 05:51 05:51 MCHC 30.8 L (31.0-37.0) g/dL RDW 16.1 H (11.5-15.5) % Chloride 97 L (98-107) mmol/L BUN 48 H (7-17) mg/dL Creatinine 1.07 H (0.52-1.04) mg/dL Glucose 143 H (74-99) mg/dL AST 42 H (14-36) U/L Microbiology - Last 24 Hours (Table) 06/19/16 02:51 Blood Culture - Preliminary Blood No Growth after 24 hours Assessment and Plan Plan: 1. Difficulty breathing due to acute on chronic diastolic heart failure with known ejection fraction 55-60% with mild aortic regurgitation, severe mitral regurgitation, mild tricuspid regurgitation and moderate pulmonary hypertension with moderate concentric left ventricular hypertrophy and severely dilated greater than 40, mild aortic valve sclerosis without stenosis. Cardiology consult appreciated. Patient is on Lasix 40 mg IV every 12 hours which will be switched back to her home dose of bumex oral, Aldactone 25 mg daily. Monitor I& O and daily weights and electrolytes. Patient is normally on Bumex 1 mg on Thursday, Thursday, Thursday. 2. COPD, stable. Continue Pulmicort 3. Pulmonary fibrosis on CAT scan of the chest. 4. Chronic atrial fibrillation presenting with rapid ventricular response . Continue Xarelto. 5. Chronic hypoxic respiratory failure with with home O2 at 2 L nasal cannula. 6. Hypertension. Continue Catapres and Aldactone. 7. Severe mitral regurgitation and mild mitral valve prolapse 8. Hyperglycemia with no previous diagnosis of diabetes mellitus. Recent hemoglobin A1c was 5.9. 9. BMI of 16 with severe protein calorie malnutrition. Protein supplementation and dietitian consult. 10. Tremors with essential tremors. 11. GERD and gastrointestinal prophylaxis. Continue Carafate. 12. CAD with prior HI in 1985. 13. Hypothyroidismon. Continue levothyroxine 50 g daily. 14. DVT prophylaxis. Continue Xarelto. Discharge plan: To be determined Impression and plan of care have been directed as dictated by the signing physician. Gillian Ross nurse practitioner acting as scribe for signing physician. Time with Patient: Greater than 30
[2016-06-20] MEDS: RIVAROXABAN 15 MG TAB PO SCH (17:35)
--- NOTE | 2016-06-20 17:44 | PN ---
Patient is known to have chronic obstructive lung disease, increasing shortness of breath, atrial fibrillation with controlled ventricular rates. Patient is skin and bones, a frail lady. She has been on Xarelto; has been making fair progress with continued supportive care ( ) Lopressor. Vital signs are stable with a pulse rate of 101, irregularly irregular, blood pressure of 138/79, respirations of 18. Head normocephalic. HEENT unremarkable. Neck is supple. No thyroid enlargement. No bruit noted. S1 and S2. Regular rate and rhythm. Lungs reveal a few basal crackles and rhonchi; otherwise unremarkable. EXTREMITIES: No pedal edema. CONSTRUCTION SAFETY MANAGER examination grossly within normal limits. ASSESSMENT: 1. Acute exacerbation of chronic congestive heart failure. 2. Atrial fibrillation with controlled ventricular rate. 3. Chronic obstructive pulmonary disease. Patient has well-preserved LV function, diastolic dysfunction.
[2016-06-20] MEDS: HYDROcodone/APAP 5-325MG 1 EACH TAB PO PRN (20:14)
[2016-06-20] MEDS: POLYETHYLENE GLYCOL 3350 17 GM POWD.PACK PO SCH (20:17)
[2016-06-21] MEDS: HYDROcodone/APAP 5-325MG 1 EACH TAB PO PRN ×2 (03:20→17:29)
[2016-06-21] MEDS: ONDANSETRON 4 MG/2 ML VIAL IVP PRN (03:21)
[2016-06-21] MEDS: IPRATROPIUM BROMIDE 0.06% NASAL SPRAY (15 ML) NASAL SCH ×4 (05:44→22:45)
[2016-06-21] MEDS: METOCLOPRAMIDE 5 MG/ML 2 ML VIAL IVP SCH ×4 (06:03→22:50)
[2016-06-21 06:55] LABS: Calcium 10.6 mg/dL (8.4-10.2); Potassium 5.5 mmol/L (3.5-5.1)
[2016-06-21] MEDS: BUDESONIDE 0.5 MG/2 ML NEBU INHALATION SCH ×2 (07:54→20:49)
[2016-06-21] MEDS: BUMETANIDE 1 MG TAB PO SCH (08:43)
[2016-06-21] MEDS: CITALOPRAM HYDROBROMIDE 10 MG TAB PO SCH (08:43)
[2016-06-21] MEDS: ASPIRIN 81 MG CHEW PO SCH (08:43)
[2016-06-21] MEDS: LEVOTHYROXINE 50 MCG TAB PO SCH (08:43)
[2016-06-21] MEDS: NITROGLYCERIN OINT 1 INCH/GM PACKET TOPICAL SCH ×4 (08:44→22:46)
[2016-06-21] MEDS: SUCRALFATE 1 GM TAB PO SCH ×4 (08:44→22:45)
[2016-06-21] MEDS: SPIRONOLACTONE 25 MG TAB PO SCH (09:56)
--- NOTE | 2016-06-21 11:52 | P.PN ---
Subjective Principal diagnosis: CHF/A. fib This is a pleasant 81-year-old female patient with a past medical history significant for chronic respiratory failure, chronic obstructive pulmonary disease, chronic atrial fibrillation, and valvular heart disease, was admitted to the hospital with acute on chronic respiratory failure secondary to COPD and CHF exacerbation. The patient continues to have shortness of breath. She denies having any chest pain or discomfort. She continues to be in A. fib with relatively controlled heart rates. She is on anticoagulation with xarelto. Objective - Vital Signs Vital signs: Vital Signs Temp 97.4 F L 06/21/16 08:35 Pulse 98 06/21/16 08:35 Resp 16 06/21/16 08:40 BP 127/65 06/21/16 08:35 Pulse Ox 92 L 06/21/16 08:35 Intake & Output 06/20/16 06/21/16 06/21/16 18:59 06:59 18:59 Intake Total 170 200 Output Total 250 300 Balance 170 -250 -100 Weight 41.7 kg Intake: Oral 170 200 Output: Urine 250 300 Other: Voiding Method Toilet Toilet # Voids 1 1 - Constitutional General appearance: Present: no acute distress - Respiratory Respiratory: bilateral: diminished - Cardiovascular Rhythm: irregularly irregular - Labs CBC & Chem 7: 06/20/16 05:51 06/21/16 06:11 Labs: Abnormal Lab Results - Last 24 Hours (Table) 06/21/16 Range/Units 06:11 Potassium 5.5 H (3.5-5.1) mmol/L Chloride 95 L (98-107) mmol/L Carbon Dioxide 31 H (22-30) mmol/L BUN 62 H (7-17) mg/dL Creatinine 1.23 H (0.52-1.04) mg/dL Glucose 157 H (74-99) mg/dL Calcium 10.6 H (8.4-10.2) mg/dL Microbiology - Last 24 Hours (Table) 06/19/16 02:51 Blood Culture - Preliminary Blood No Growth after 48 hours Assessment and Plan Plan: Assessment #1 acute on chronic respiratory failure #2 COPD exacerbation #3 CHF exacerbation secondary to diastolic dysfunction #4 valvular heart disease with moderate MR #5 chronic H or fibrillation was controlled heart rate Plan #1 continue the patient on the current medical treatment including diuretics by mouth #2 from the cardiovascular standpoint overview, no need for any further cardiac workup and will follow-up with her on when necessary case
--- NOTE | 2016-06-21 13:05 | PN ---
INTERVAL HISTORY: Patient continued to be nauseous. No vomiting reported. Decreased oral intake reported by nursing staff where the patient was eating less than 25% of her meals and barely able to drink sips of water. Patient is really cachectic and lethargic but alert and oriented, and following commands. PHYSICAL EXAMINATION: VITAL SIGNS: 97.4, 98, 16, 127/65 and saturation is 92% on 3 liters nasal cannula. LUNGS: Diminished bilaterally. HEART: Normal S1, S2. ABDOMEN: Soft, no tenderness, positive bowel sounds in all 4 quadrants. EXTREMITIES: Lower extremities positive for muscle wasting. Positive pulses are bilaterally. SKIN: No new rash. PSYCH: As above. IMAGING AND LABS: Potassium is 5.5. Her creatinine is 1.23 and calcium is 10.6. Blood cultures negative. ASSESSMENT AND PLAN: 1. Congestive heart failure with exacerbation. Will continue current cardioprotective medication. Continue diuretics. Patient seems to be euvolemic and was switched to oral medication at this point. 2. Severe debility and weakness with severe protein calorie malnutrition and failure to thrive. Patient is not study on her feet. I would like to get physical therapy to evaluate the patient. I would like to continue monitoring the patient closely. 3. Nausea. We will continue with Zofran as needed. No vomiting reported. Will encourage p.o. intake. 4. Chronic obstructive pulmonary disease. Will continue supplemental oxygen and pulmonary hygiene. 5. Pulmonary fibrosis, stable. 6. Atrial fibrillation, heart rate is controlled. We will continue Xarelto for anticoagulation. 7. Prognosis is guarded.
[2016-06-21] MEDS: RIVAROXABAN 15 MG TAB PO SCH (17:18)
[2016-06-21] MEDS: POLYETHYLENE GLYCOL 3350 17 GM POWD.PACK PO SCH (22:45)
[2016-06-22] MEDS: METOCLOPRAMIDE 5 MG/ML 2 ML VIAL IVP SCH ×3 (06:00→17:34)
[2016-06-22] MEDS: ASPIRIN 81 MG CHEW PO SCH (07:54)
[2016-06-22] MEDS: BUMETANIDE 1 MG TAB PO SCH (07:54)
[2016-06-22] MEDS: CITALOPRAM HYDROBROMIDE 10 MG TAB PO SCH (07:55)
[2016-06-22] MEDS: LEVOTHYROXINE 50 MCG TAB PO SCH (07:56)
[2016-06-22] MEDS: SUCRALFATE 1 GM TAB PO SCH ×4 (07:56→21:16)
[2016-06-22] MEDS: SPIRONOLACTONE 25 MG TAB PO SCH (07:56)
[2016-06-22] MEDS: NITROGLYCERIN OINT 1 INCH/GM PACKET TOPICAL SCH ×5 (07:56→21:21)
[2016-06-22] MEDS: BUDESONIDE 0.5 MG/2 ML NEBU INHALATION SCH ×2 (09:11→19:47)
--- NOTE | 2016-06-22 09:38 | P.PN ---
Subjective Principal diagnosis: CHF/A. fib This is a pleasant 81-year-old female patient with a past medical history significant for chronic respiratory failure, chronic obstructive pulmonary disease, chronic atrial fibrillation, and valvular heart disease, was admitted to the hospital with acute on chronic respiratory failure secondary to COPD and CHF exacerbation. The patient continues to have shortness of breath. She denies having any chest pain or discomfort. she is in A. fib with slightly uncontrolled heart rates. She is not on any AV denice ashlee agents at this point. She is on anticoagulation using Xarelto. I'm going to start the patient on metoprolol at 25 mg by mouth twice a day. Continue anticoagulation using Xarelto. Reviewing the blood work from today showed hyperkalemia and I'm going to DC the Aldactone and repeat the potassium tomorrow morning.. Objective - Vital Signs Vital signs: Vital Signs Temp 97 F L 06/22/16 07:00 Pulse 100 06/22/16 09:21 Resp 20 06/22/16 07:00 BP 159/77 06/22/16 07:00 Pulse Ox 91 L 06/22/16 07:00 Intake & Output 06/21/16 06/22/16 06/22/16 18:59 06:59 18:59 Intake Total 700 Output Total 900 Balance -200 Intake: Oral 700 Output: Urine 900 Other: Voiding Method Toilet Toilet # Voids 1 1 - Labs CBC & Chem 7: 06/20/16 05:51 06/21/16 06:11 Labs: Microbiology - Last 24 Hours (Table) 06/19/16 02:51 Blood Culture - Preliminary Blood No Growth after 72 hours Assessment and Plan Plan: Assessment #1 acute on chronic respiratory failure #2 COPD exacerbation #3 CHF exacerbation secondary to diastolic dysfunction #4 valvular heart disease with moderate MR #5 chronic A. fib with uncontrolled heart rate #6 hyperkalemia Plan #1 start the patient on metoprolol for heart rate control #2 DC Aldactone #3 follow-up with the patient
[2016-06-22 10:43] LABS: Anion Gap 9 mmol/L; Blood Urea Nitrogen 57 mg/dL (7-17); Calcium 9.9 mg/dL (8.4-10.2); Carbon Dioxide 32 mmol/L (22-30); Chloride 98 mmol/L (98-107); Glucose 129 mg/dL (74-99); Non-African American GFR(MDRD) >60 (>60 ml/min/1.73 sqM); Sodium 139 mmol/L (137-145)
[2016-06-22 10:48] LABS: Potassium 5.1 mmol/L (3.5-5.1)
[2016-06-22] MEDS: RIVAROXABAN 15 MG TAB PO SCH (17:34)
--- NOTE | 2016-06-22 17:59 | PN ---
INTERVAL HISTORY: Patient continued to be hemodynamically stable. No major events reported by nursing staff. PHYSICAL EXAMINATION: VITAL SIGNS: 98.9, 104, 16, 131/84 and saturation is 96% on nasal cannula. LUNGS: Diminished bilaterally. HEART: Normal S1, S2. ABDOMEN: Soft, no tenderness, positive bowel sounds in all 4 quadrants. SKIN: No new rash. NEURO: No focal deficits, stable from prior examination. IMAGING AND LABS: Sodium slightly elevated at 5.1, but still within normal limits. Glucose 129. Blood cultures are pending negative. ASSESSMENT AND PLAN: 1. Congestive heart failure with recent exacerbation. Patient was switched to her home regimen of Bumex and seems to be improving. I would like to continue the patient on cardioprotective medication. 2. Severe debility and weakness with severe protein calorie malnutrition. Encourage p.o. intake and have PT/OT evaluate the patient prior to discharge in the morning. 3. Nausea seems to be improved with Zofran. We will continue encouraging p.o. intake. 4. Chronic obstructive pulmonary disease, currently compensated. Will continue with supplemental oxygen and pulmonary hygiene. 5. Pulmonary fibrosis, stable. 6. Atrial fibrillation, heart rate is controlled. Will continue Xarelto. 7. Discharge planning in the morning per PT, OT recommendation.
[2016-06-22] MEDS: HYDROcodone/APAP 5-325MG 1 EACH TAB PO PRN (19:26)
[2016-06-22] MEDS: METOPROLOL TARTRATE 25 MG TAB PO SCH (21:16)
[2016-06-22] MEDS: POLYETHYLENE GLYCOL 3350 17 GM POWD.PACK PO SCH (21:16)
[2016-06-23] MEDS: METOCLOPRAMIDE 5 MG/ML 2 ML VIAL IVP SCH ×4 (00:01→17:59)
[2016-06-23] MEDS: BUDESONIDE 0.5 MG/2 ML NEBU INHALATION SCH (08:14)
[2016-06-23] MEDS: METOPROLOL TARTRATE 25 MG TAB PO SCH (08:37)
[2016-06-23] MEDS: ASPIRIN 81 MG CHEW PO SCH (08:37)
[2016-06-23] MEDS: IPRATROPIUM BROMIDE 0.06% NASAL SPRAY (15 ML) NASAL SCH ×4 (08:37→11:07)
[2016-06-23] MEDS: LEVOTHYROXINE 50 MCG TAB PO SCH (08:37)
[2016-06-23] MEDS: NITROGLYCERIN OINT 1 INCH/GM PACKET TOPICAL SCH ×4 (08:37→17:02)
[2016-06-23] MEDS: CITALOPRAM HYDROBROMIDE 10 MG TAB PO SCH (08:38)
[2016-06-23] MEDS: SUCRALFATE 1 GM TAB PO SCH ×2 (08:38→13:05)
[2016-06-23] MEDS ORDERED: BUMETANIDE 1 MG TAB PO SCH (09:00)
[2016-06-23] MEDS: HYDROcodone/APAP 5-325MG 1 EACH TAB PO PRN (09:05)
[2016-06-23 10:53] LABS: Anion Gap 13 mmol/L; Blood Urea Nitrogen 47 mg/dL (7-17); Calcium 9.8 mg/dL (8.4-10.2); Carbon Dioxide 28 mmol/L (22-30); Chloride 97 mmol/L (98-107); Glucose 369 mg/dL (74-99); Non-African American GFR(MDRD) >60 (>60 ml/min/1.73 sqM); Potassium 5.2 mmol/L (3.5-5.1); Sodium 138 mmol/L (137-145)
[2016-06-23 15:03] VITALS: BP 142/71; PULSE 93; RESP 17; TEMP 96.1
--- NOTE | 2016-06-23 15:48 | P.DS ---
Providers Date of admission: 06/19/16 00:29 Expected date of discharge: 06/23/16 Attending physician: Erica Alvarez Primary care physician: Erica Alvarez [place] [facility] Course: This is an 81-year-old female patient of Dr. Alvarez. She has underlying history of chronic atrial fibrillation, COPD, chronic diastolic heart failure, hypothyroidism and hypertension, essential tremor, chronic hypoxic respiratory failure with home O2 dependence, pulmonary fibrosis. Patient states that she had shortness of breath that started a couple days ago with cough that was nonproductive. She states she felt tired and weak and nauseated and achy all over. She denies any weight loss. Patient presented to [facility] emergency center. Initial blood pressure was 184/ 91 and EKG showed A. fib with RVR at a rate of 122. Chest x-ray showed suspected mild to moderate interstitial cardiogenic pulmonary edema. Blood cultures were obtained. Platelet count was 139. No leukocytosis. Lactic acid was 2.7, 2.6 and 2.9. Troponins have been negative on 3 draws. Urinalysis was cloudy, nitrate and leukoesterase negative. Influenza A and B negative. Patient was admitted to the selective care unit for acute heart failure and started on Lasix 40 mg IV every 12 hours and cardiology consult requested. 06/20: Repeat lactic acid 1.7. BUN 48 and creatinine 1.07. Echocardiogram reveals atrial fibrillation, moderate mitral regurgitation, mild tricuspid regurgitation, moderate to severe pulmonary hypertension, small pleural effusion. She has been seen by home stager. She did have headache this morning improved with dilaudid. She had nausea not improved with nausea. Reglan added with improvement. IV lasix changed to her home dose of bumex oral. PT eval pending due to patient's nausea this morning. 06/23: echocardiogram reveals moderate mitral regurgitation, mild tricuspid regurgitation, severe pulmonary hypertension, small pleural effusion, EF 55-60% , LA severely dilated greater than 40, anterior atrial septal aneurysm, mild aortic regurgitation. Patient will be discharged to [facility] today in stable condition. Discharge Diagnoses: 1. Difficulty breathing due to acute on chronic diastolic heart failure with known ejection fraction 55-60% with mild aortic regurgitation, severe mitral regurgitation, mild tricuspid regurgitation and moderate pulmonary hypertension with moderate concentric left ventricular hypertrophy and severely dilated greater than 40, mild aortic valve sclerosis without stenosis. 2. COPD, stable. 3. Pulmonary fibrosis on CAT scan of the chest. 4. Chronic atrial fibrillation presenting with rapid ventricular response 5. Chronic hypoxic respiratory failure with with home O2 at 2 L nasal cannula. 6. Hypertension. 7. Severe mitral regurgitation and mild mitral valve prolapse 8. Hyperglycemia with no previous diagnosis of diabetes mellitus. Recent hemoglobin A1c was 5.9. 9. BMI of 16 with severe protein calorie malnutrition. 10. Tremors with essential tremors. 11. GERD 12. CAD with prior [place] in 1985. 13. Hypothyroidismon. Discharge plan: [facility] today in stable condition under the care of Dr. Alvarez. Impression and plan of care have been directed as dictated by the signing physician. Gillian Ross nurse practitioner acting as scribe for signing physician. Patient Condition at Discharge: Good Plan - Discharge Summary New Discharge Prescriptions: Diazepam [Valium] 10 mg PO HS PRN #60 tab PRN Reason: Insomnia HYDROcodone/APAP 5-325MG [[place]orman 5-325] 1 each PO Q6HR PRN #60 tab PRN Reason: Pain Isosorbide Mononitrate ER [Imdur] 30 mg PO DAILY #30 tab Discharge Medication List Budesonide [Pulmicort] 0.5 mg INHALATION RT-BID 08/22/13 [History] Citalopram Hydrobromide [CeleXA] 10 mg PO DAILY 08/22/13 [History] Levothyroxine Sodium [Levoxyl] 50 mcg PO DAILY 08/22/13 [History] Rivaroxaban [Xarelto] 20 mg PO DAILY 08/22/13 [History] Epinastine Eye Drops 1 drop BOTH EYES BID 01/29/16 [History] Sucralfate [Carafate] 1 gm PO QID 01/29/16 [History] Bumetanide [BUMEX] 1 mg PO SUTUTHSA 01/30/16 [History] Nitroglycerin Sl Tabs [Nitrostat] 0.4 mg SUBLINGUAL Q5M PRN #25 tab 02/02/16 [Rx ] Bumetanide [BUMEX] 2 mg PO MOWEFR 06/18/16 [History] Polyethylene Glycol 3350 [Miralax] 17 gm PO HS 06/18/16 [History] cloNIDine HCL [Catapres] 0.1 mg PO DAILY PRN 06/18/16 [History] Metoprolol Tartrate [Lopressor] 25 mg PO BID 06/21/16 [History] Aspirin 81 mg PO DAILY chew 06/23/16 [Rx] Diazepam [Valium] 10 mg PO HS PRN #60 tab 06/23/16 [Rx] HYDROcodone/APAP 5-325MG [Lorman 5-325] 1 each PO Q6HR PRN #60 tab 06/23/16 [Rx] Ipratropium [place] 0.06%Nasal [Atrovent Nasal 0.06%] 2 spray NASAL TID spray 06/23/16 [Rx] Isosorbide Mononitrate ER [Imdur] 30 mg PO DAILY #30 tab 06/23/16 [Rx] Follow up Appointment(s)/Referral(s): [facility] [Provider Group] - 07/10/16 3:35 pm Erica Alvarez MD [Primary Care Provider] - 07/04/16 11:45 am Patient Instructions/Handouts: Heart Failure (DC) Discharge Disposition: TRANSFER TO SNF/ECF
[2016-06-23 16:25] VITALS: BMI 16.2
[2016-06-23] MEDS: RIVAROXABAN 15 MG TAB PO SCH (17:59)
== END 2016-06-23 17:56 | DRG 291 ==
LOC: EC 19:10 → 6SEL 06-19 00:29 → 4MS4W 06-21 19:46
PROVIDERS: ADMIT Internal Medicine; ATTEND Internal Medicine
DX: I11.0 Hypertensive heart disease with heart failure (principal); E43 Unspecified severe protein-calorie malnutrition; I25.3 Aneurysm of heart; I27.2 Other secondary pulmonary hypertension; J44.1 Chronic obstructive pulmonary disease with (acute) exacerbation; J96.11 Chronic respiratory failure with hypoxia; Z68.1 Body mass index [BMI] 19.9 or less, adult; J84.10 Pulmonary fibrosis, unspecified; I48.2 Chronic atrial fibrillation; E87.5 Hyperkalemia; E03.9 Hypothyroidism, unspecified; I50.33 Acute on chronic diastolic (congestive) heart failure; F32.9 Major depressive disorder, single episode, unspecified; F41.9 Anxiety disorder, unspecified; G25.0 Essential tremor; I08.3 Combined rheumatic disorders of mitral, aortic and tricuspid valves; I25.10 Atherosclerotic heart disease of native coronary artery without angina pectoris; I25.2 Old myocardial infarction; K21.9 Gastro-esophageal reflux disease without esophagitis; M41.9 Scoliosis, unspecified; R62.7 Adult failure to thrive; R73.9 Hyperglycemia, unspecified; Z79.01 Long term (current) use of anticoagulants; Z79.899 Other long term (current) drug therapy; Z87.891 Personal history of nicotine dependence; Z99.81 Dependence on supplemental oxygen; Z88.5 Allergy status to narcotic agent; Z88.0 Allergy status to penicillin; Z88.8 Allergy status to other drugs, medicaments and biological substances; Z82.49 Family history of ischemic heart disease and other diseases of the circulatory system
CPT/HCPCS: 36415; 71020; 80048; 80053; 81001; 82533; 82550; 82553; 83605; 83880; 84484; 85025; 85027; 85610; 85730; 87040; 87086; 87502; 93005; 93306; 94640; 94760; 96361; 96372; 96374; 96376; 99285

== ENCOUNTER 2016-07-15 08:40 | Inpatient (IN) | payer MEDICARE, BC ==
--- NOTE | 2016-07-15 09:03 | ED ---
General Adult HPI - General Stated complaint: JACKELIN Time Seen by Provider: 07/15/16 08:48 Source: RN notes reviewed - History of Present Illness Initial comments: This is an 81-year-old female presents emergency department with past medical history significant for pulmonary fibrosis and COPD. According to the EMS report patient was having difficulty breathing he did chest x-rays A believe the patient to have some pulmonary edema last night. Patient does complain of shortness of breath. According to EMS she was on a venting mask and she was oxygenating in the mid to high 90s. There is no history of any fever however the patient did have some chills. There was no history of any chest pain or palpitations. Patient denied any abdominal pain. Patient denies nausea vomiting diarrhea. Patient states she was in general feeling very weak. Patient denied any recent injury or fall. Patient denies headache patient denied numbness weakness. According to EMS the patient is in no code. - Related Data Home Medications Medication Instructions Recorded Confirmed Budesonide [Pulmicort] 0.5 mg INHALATION RT-BID 08/22/13 07/15/16 Citalopram Hydrobromide [CeleXA] 10 mg PO DAILY 08/22/13 07/15/16 Levothyroxine Sodium [Levoxyl] 50 mcg PO DAILY 08/22/13 07/15/16 Epinastine Eye Drops 1 drop BOTH EYES BID 01/29/16 07/15/16 Sucralfate [Carafate] 1 gm PO QID 01/29/16 07/15/16 Bumetanide [BUMEX] 1 mg PO SUTUTHSA 01/30/16 07/15/16 Bumetanide [BUMEX] 2 mg PO MOWEFR 06/18/16 07/15/16 Polyethylene Glycol 3350 [Miralax] 17 gm PO HS 06/18/16 07/15/16 cloNIDine HCL [Catapres] 0.1 mg PO DAILY PRN 06/18/16 07/15/16 Metoprolol Tartrate [Lopressor] 25 mg PO BID 06/21/16 07/15/16 Aspirin 81 mg PO DAILY@1700 07/15/16 07/15/16 Bisacodyl [Dulcolax] 10 mg RECTAL DAILY PRN 07/15/16 07/15/16 Diazepam [Valium] 10 mg PO BID PRN 07/15/16 07/15/16 Diazepam [Valium] 10 mg PO DAILY@2100 07/15/16 07/15/16 Ensure Clear 1 can PO TID-W/MEALS 07/15/16 07/15/16 HYDROcodone/APAP 5-325MG [[place] 1 tab PO Q6HR PRN 07/15/16 07/15/16 5-325] Ipratropium [place] 0.06%Nasal 2 spray EA NOSTRIL TID 07/15/16 07/15/16 [Atrovent Nasal 0.06%] Magnesium Hydroxide [Milk of 2,400 mg PO DAILY PRN 07/15/16 07/15/16 Magnesia] Na Phos,M-B/Na Phos,Di-Ba [Fleet 133 ml RECTAL DAILY PRN 07/15/16 07/15/16 Adult] Natural Balance Tears 2 drops BOTH EYES DAILY PRN 07/15/16 07/15/16 Ondansetron [Zofran] 4 mg PO Q6H PRN 07/15/16 07/15/16 Rivaroxaban [Xarelto] 15 mg PO DAILY@1700 07/15/16 07/15/16 Previous Rx's Medication Instructions Recorded Nitroglycerin Sl Tabs [Nitrostat] 0.4 mg SUBLINGUAL Q5M PRN #25 tab 02/02/16 Isosorbide Mononitrate ER [Imdur] 30 mg PO DAILY #30 tab 06/23/16 Allergies Allergy/AdvReac Type Severity Reaction Status Date / Time albuterol [From DuoNeb] Allergy Itching Verified 07/15/16 09:05 ampicillin Allergy Unknown Verified 07/15/16 09:05 aspirin Allergy Nausea & Verified 07/15/16 09:05 Vomiting atenolol [From Tenormin] Allergy Unknown Verified 07/15/16 09:05 atorvastatin calcium Allergy Unknown Verified 07/15/16 09:05 [From Lipitor] budesonide [From Symbicort] Allergy Itching Verified 07/15/16 09:05 ezetimibe [From Zetia] Allergy Unknown Verified 07/15/16 09:05 fluoxetine HCl [From Prozac] Allergy Unknown Verified 07/15/16 09:05 fluticasone Allergy Itching Verified 07/15/16 09:05 [From Advair Diskus] formoterol [From Symbicort] Allergy Itching Verified 07/15/16 09:05 ipratropium [From DuoNeb] Allergy Itching Verified 07/15/16 09:05 metoprolol tartrate Allergy Unknown Verified 07/15/16 09:05 [From Lopressor] mirtazapine Allergy Unknown Verified 07/15/16 09:05 morphine Allergy Unknown Verified 07/15/16 09:05 oxycodone [Oxycodone] Allergy Unknown Verified 07/15/16 09:05 oxycodone HCl [From Percocet] Allergy Unknown Verified 07/15/16 09:05 propranolol HCl Allergy Unknown Verified 07/15/16 09:05 [From Inderal LA] salmeterol Allergy Itching Verified 07/15/16 09:05 [From Advair Diskus] Sulfa (Sulfonamide Allergy Unknown Verified 07/15/16 09:05 Antibiotics) verapamil [Verapamil] Allergy Unknown Verified 07/15/16 09:05 Review of Systems ROS Statement: Those systems with pertinent positive or pertinent negative responses have been documented in the HPI. ROS Other: All systems not noted in ROS Statement are negative. Past Medical History Past Medical History: Atrial Fibrillation, Heart Failure, COPD, Hypertension, Myocardial Infarction (ME), Thyroid Disorder Last Myocardial Infarction Date:: 1985 History of Any Multi-Drug Resistant Organisms: None Reported Past Surgical History: Back Surgery, Cholecystectomy, Hernia Repair, Hysterectomy Additional Past Surgical History / Comment(s): tear duct surg Past Anesthesia/Blood Transfusion Reactions: No Reported Reaction Past Psychological History: Anxiety, Depression Smoking Status: Former smoker Past Alcohol Use History: None Reported Additional Past Alcohol Use History / Comment(s): She was a smoker one pack per day for 30-40 years and quit 45 years ago. No illicit drug use or alcohol use. Patient lives at home and her son and [id number] live with her. She has a walker and cane which she uses occasionally. She also has home O2 and nebulizer. Past Drug Use History: None Reported - Past Family History Mother Family Medical History: Diabetes Mellitus, Hypertension Additional Family Medical History / Comment(s): Mother at age 65 with history of diabetes and hypertension. Father Additional Family Medical History / Comment(s): Father at age 64 from unknown cancer. Brother(s) Additional Family Medical History / Comment(s): Patient has 2 half brothers that during war. She does not have any sisters. Son(s) Additional Family Medical History / Comment(s): She has one son with no major medical problems. General Exam - General Exam Comments Initial Comments: GENERAL: Patient is well-developed and well-nourished. Patient is nontoxic and well- hydrated and is in mild distress. ENT: Neck is soft and supple. No significant lymphadenopathy is noted. Oropharynx is clear. Moist mucous membranes. Neck has full range of motion without eliciting any pain. EYES: The sclera were anicteric and conjunctiva were pink and moist. Extraocular movements were intact and pupils were equal round and reactive to light. Eyelids were unremarkable. PULMONARY: Unlabored respirations. Good breath sounds bilaterally. Patient has crackles bilaterally greater in the right than the left. CARDIOVASCULAR: There is a regular rate and rhythm without any murmurs gallops or rubs. ABDOMEN: Soft and nontender with normal bowel sounds. No palpable organomegaly was noted. There is no palpable pulsatile mass. SKIN: Skin is clear with no lesions or rashes and otherwise unremarkable. NEUROLOGIC: Patient is alert and oriented 2. Cranial nerves II through XII are grossly intact. Motor and sensory are also intact. Normal speech, volume and content. Symmetrical smile. MUSCULOSKELETAL: Normal extremities with adequate strength and full range of motion. No lower extremity swelling or edema. No calf tenderness. LYMPHATICS: No significant lymphadenopathy is noted PSYCHIATRIC: Normal psychiatric evaluation. Normal interpersonal interactions appears functionally intact in deals appropriately with others. No signs of depression. No signs of anxiety. Course Vital Signs 07/15/16 09:02 Temperature 98.9 F Pulse Rate 60 Respiratory 20 Rate Blood Pressure 123/57 O2 Sat by Pulse 96 Oximetry Medical Decision Making - Medical Decision Making EKG shows atrial fibrillation with an occasional PVC at 62 bpm QRS is 96 QT interval 380 QTc is 385. Patient's EKG shows no significant ST segment elevation. Chest x-ray shows congestive heart failure. Patient is also anemic. I type and cross the patient at this time. I spoke with Dr. Rios and he she agrees to admit the patient I wrote admit orders and consult cardiology. I put the patient on Lasix nitro paste diarrhea ordered CBCs every 6. - Lab Data Result diagrams: 07/15/16 09:48 07/15/16 09:48 Lab Results 07/15/16 07/15/16 07/15/16 Range/Units 09:48 09:48 09:48 WBC 7.2 (3.8-10.6) k/uL RBC 2.82 L (3.80-5.40) m/uL Hgb 8.4 L (11.4-16.0) gm/dL Hct 25.0 L (34.0-46.0) % MCV 88.7 (80.0-100.0) fL MCH 29.7 (25.0-35.0) pg MCHC 33.5 (31.0-37.0) g/dL RDW 16.0 H (11.5-15.5) % Plt Count 171 (150-450) k/uL Neutrophils % 82 % Lymphocytes % 11 % Monocytes % 3 % Eosinophils % 3 % Basophils % 0 % Neutrophils # 5.9 (1.3-7.7) k/uL Lymphocytes # 0.8 L (1.0-4.8) k/uL Monocytes # 0.2 (0-1.0) k/uL Eosinophils # 0.2 (0-0.7) k/uL Basophils # 0.0 (0-0.2) k/uL Manual Slide Review Performed Polychromasia Present Hypochromasia Marked Poikilocytosis Slight Anisocytosis Slight PT (9.0-12.0) sec INR (<1.1) APTT (22.0-30.0) sec Sodium 138 (137-145) mmol/L Potassium 5.4 H (3.5-5.1) mmol/L Chloride 96 L (98-107) mmol/L Carbon Dioxide 32 H (22-30) mmol/L Anion Gap 10 mmol/L BUN 37 H (7-17) mg/dL Creatinine 1.54 H (0.52-1.04) mg/dL Est GFR (MDRD) Af Amer 39 (>60 ml/min/1.73 sqM) Est GFR (MDRD) Non-Af 32 (>60 ml/min/1.73 sqM) Glucose 101 H (74-99) mg/dL Plasma Lactic Acid Mason (0.7-2.0) mmol/L Calcium 9.3 (8.4-10.2) mg/dL Magnesium 2.0 (1.6-2.3) mg/dL Total Bilirubin 0.6 (0.2-1.3) mg/dL AST 93 H (14-36) U/L ALT 71 H (9-52) U/L Alkaline Phosphatase 134 H (38-126) U/L Total Creatine Kinase 45 (30-135) U/L CK-MB (CK-2) 2.3 (0.0-2.4) ng/mL CK-MB (CK-2) Rel Index 5.1 Troponin I 0.153 H* (0.000-0.034) ng/mL Total Protein 6.5 (6.3-8.2) g/dL Albumin 2.8 L (3.5-5.0) g/dL Stool Occult Blood (Negative) Blood Type Blood Type Recheck Antibody Screen Spec Expiration Date 07/15/16 07/15/16 07/15/16 Range/Units 09:48 09:48 11:40 WBC (3.8-10.6) k/uL RBC (3.80-5.40) m/uL Hgb (11.4-16.0) gm/dL Hct (34.0-46.0) % MCV (80.0-100.0) fL MCH (25.0-35.0) pg MCHC (31.0-37.0) g/dL RDW (11.5-15.5) % Plt Count (150-450) k/uL Neutrophils % % Lymphocytes % % Monocytes % % Eosinophils % % Basophils % % Neutrophils # (1.3-7.7) k/uL Lymphocytes # (1.0-4.8) k/uL Monocytes # (0-1.0) k/uL Eosinophils # (0-0.7) k/uL Basophils # (0-0.2) k/uL Manual Slide Review Polychromasia Hypochromasia Poikilocytosis Anisocytosis PT 16.4 H (9.0-12.0) sec INR 1.7 (<1.1) APTT 30.7 H (22.0-30.0) sec Sodium (137-145) mmol/L Potassium (3.5-5.1) mmol/L Chloride (98-107) mmol/L Carbon Dioxide (22-30) mmol/L Anion Gap mmol/L BUN (7-17) mg/dL Creatinine (0.52-1.04) mg/dL Est GFR (MDRD) Af Amer (>60 ml/min/1.73 sqM) Est GFR (MDRD) Non-Af (>60 ml/min/1.73 sqM) Glucose (74-99) mg/dL Plasma Lactic Acid Mason 1.6 (0.7-2.0) mmol/L Calcium (8.4-10.2) mg/dL Magnesium (1.6-2.3) mg/dL Total Bilirubin (0.2-1.3) mg/dL AST (14-36) U/L ALT (9-52) U/L Alkaline Phosphatase (38-126) U/L Total Creatine Kinase (30-135) U/L CK-MB (CK-2) (0.0-2.4) ng/mL CK-MB (CK-2) Rel Index Troponin I (0.000-0.034) ng/mL Total Protein (6.3-8.2) g/dL Albumin (3.5-5.0) g/dL Stool Occult Blood (Negative) Blood Type O Negative Blood Type Recheck No Antibody Screen NEGATIVE Spec Expiration Date 07/18/2016 - 233907/15/16 Range/Units 12:20 WBC (3.8-10.6) k/uL RBC (3.80-5.40) m/uL Hgb (11.4-16.0) gm/dL Hct (34.0-46.0) % MCV (80.0-100.0) fL MCH (25.0-35.0) pg MCHC (31.0-37.0) g/dL RDW (11.5-15.5) % Plt Count (150-450) k/uL Neutrophils % % Lymphocytes % % Monocytes % % Eosinophils % % Basophils % % Neutrophils # (1.3-7.7) k/uL Lymphocytes # (1.0-4.8) k/uL Monocytes # (0-1.0) k/uL Eosinophils # (0-0.7) k/uL Basophils # (0-0.2) k/uL Manual Slide Review Polychromasia Hypochromasia Poikilocytosis Anisocytosis PT (9.0-12.0) sec INR (<1.1) APTT (22.0-30.0) sec Sodium (137-145) mmol/L Potassium (3.5-5.1) mmol/L Chloride (98-107) mmol/L Carbon Dioxide (22-30) mmol/L Anion Gap mmol/L BUN (7-17) mg/dL Creatinine (0.52-1.04) mg/dL Est GFR (MDRD) Af Amer (>60 ml/min/1.73 sqM) Est GFR (MDRD) Non-Af (>60 ml/min/1.73 sqM) Glucose (74-99) mg/dL Plasma Lactic Acid Mason (0.7-2.0) mmol/L Calcium (8.4-10.2) mg/dL Magnesium (1.6-2.3) mg/dL Total Bilirubin (0.2-1.3) mg/dL AST (14-36) U/L ALT (9-52) U/L Alkaline Phosphatase (38-126) U/L Total Creatine Kinase (30-135) U/L CK-MB (CK-2) (0.0-2.4) ng/mL CK-MB (CK-2) Rel Index Troponin I (0.000-0.034) ng/mL Total Protein (6.3-8.2) g/dL Albumin (3.5-5.0) g/dL Stool Occult Blood Positive H (Negative) Blood Type Blood Type Recheck Antibody Screen Spec Expiration Date Critical Care Time Critical Care Time: Yes Total Critical Care Time: 35 Disposition Clinical Impression: Acute pulmonary edema, Anemia, Dyspnea, GI bleed Disposition: ADMITTED IP TO THIS HOSP Referrals: Erica Alvarez MD [Primary Care Provider] - 1-2 days Time of Disposition: 12:52
[2016-07-15 10:19] LABS: INR 1.7 (<1.1); Partial Thromboplastin Time 30.7 sec (22.0-30.0); Prothrombin Time 16.4 sec (9.0-12.0)
[2016-07-15 10:20] LABS: Anisocytosis Slight; Basophils % (A) 0 %; CH 26.6; CHCM 30.3; Eosinophils # (A) 0.2 k/uL (0-0.7); Eosinophils % (A) 3 %; HDW 3.42; HGB 8.4 gm/dL (11.4-16.0); Hypochromasia Marked; Luc # (Auto) 0.09; Luc % (Auto) 1; Lymphocytes # (A) 0.8 k/uL (1.0-4.8); Lymphocytes % (A) 11 %; MCH 29.7 pg (25.0-35.0); MCHC 33.5 g/dL (31.0-37.0); MCV 88.7 fL (80.0-100.0); Mean Platelet Volume 8.2; Monocytes # (A) 0.2 k/uL (0-1.0); Monocytes % (A) 3 %; Neutrophils # (A) 5.9 k/uL (1.3-7.7); Neutrophils % (A) 82 %; Poikilocytosis Slight; RBC 2.82 m/uL (3.80-5.40); WBC 7.2 k/uL (3.8-10.6); WBC (Perox) 5.88
[2016-07-15 10:37] LABS: Manual Review Performed
[2016-07-15 10:39] LABS: Polychromasia Present
[2016-07-15 10:46] LABS: Calcium 9.3 mg/dL (8.4-10.2); Potassium 5.4 mmol/L (3.5-5.1); Total Bilirubin 0.6 mg/dL (0.2-1.3); Total Protein 6.5 g/dL (6.3-8.2)
[2016-07-15 10:57] LABS: Creatine Kinase MB 2.3 ng/mL (0.0-2.4)
[2016-07-15 11:04] LABS: Troponin I 0.153 ng/mL (0.000-0.034)
--- NOTE | 2016-07-15 11:21 | XR ---
EXAMINATION TYPE: XR chest 2V DATE OF EXAM: 07/15/2016 10:58 AM COMPARISON: Chest x-ray June 18, 2016 HISTORY: Shortness of breath. TECHNIQUE: Frontal and lateral views of the chest are obtained. FINDINGS: There is chronic emphysematous change with small bilateral pleural effusions seen. There i s associated bibasilar atelectasis and/or infiltrate. Mild central vascular congestion is present. Un derlying emphysematous change is noted. The cardiac silhouette size is stable and enlarged with ather osclerotic thoracic aorta. The osseous structures are demineralized. IMPRESSION: Suspect CHF exacerbation on background of chronic emphysematous change as there is cardi omegaly with central vascular congestion and small bilateral pleural effusions more prominent than pr ior study.
[2016-07-15] MEDS ORDERED: FUROSEMIDE 10 MG/ML 2 ML VIAL IV ONE (12:19)
[2016-07-15] MEDS ORDERED: NITROGLYCERIN OINT 1 INCH/GM PACKET TOPICAL STA (12:19)
[2016-07-15] MEDS ORDERED: NITROGLYCERIN OINT 1 INCH/GM PACKET TOPICAL SCH (13:00)
[2016-07-15] MEDS ORDERED: FUROSEMIDE 10 MG/ML 4 ML VIAL IV SCH (13:00)
[2016-07-15 14:43] LABS: Amorphous Sediment,Urine Rare /hpf; Appearance,Urine Clear (Clear); Bilirubin,Urine Negative (Negative); Glucose,Urine (UA) Negative (Negative); Ketones,Urine Negative (Negative); Leukocyte Esterase,Urine Trace (Negative); Mucus,Urine Rare /hpf; Nitrite,Urine Negative (Negative); Particle Count 4715; Protein,Urine Negative (Negative); Squamous Epithelial Cell,Urine 2 /hpf (0-4); UA Billing (MACRO vs. MICRO) MICRO; Urobilinogen,Urine <2.0 mg/dL (<2.0); WBC,Urine 4 /hpf (0-5)
[2016-07-15] MEDS: NITROGLYCERIN OINT 1 INCH/GM PACKET TOPICAL SCH ×2 (17:28→22:46)
[2016-07-15] MEDS ORDERED: DIAZEPAM 5 MG TAB PO PRN (17:41)
[2016-07-15] MEDS ORDERED: BISACODYL 10 MG SUPP RECTAL PRN (17:41)
[2016-07-15] MEDS ORDERED: NITROGLYCERIN SL TABS 0.4 MG TAB SUBLINGUAL PRN (17:41)
[2016-07-15] MEDS ORDERED: cloNIDine HCL 0.1 MG TAB PO PRN (17:41)
--- NOTE | 2016-07-15 17:50 | P.HPIM ---
History of Present Illness H&P Date: 07/15/16 Chief Complaint: Shortness of breath wheezing this is a pleasant 81-year-old lady patient of Dr. Alvarez, Dr. Gan , She has underlying history of chronic atrial fibrillation, COPD, CHF, hypothyroidism and hypertension chronic anticoagulation with Xarelto, COPD, diastolic CHF, hypothyroidism, chronic hypoxemic respiratory failure with O2 from pulmonary fibrosis currently at [facility] for skilled rehabilitation, she was sent into the emergency room secondary to increasing shortness of breath and was noted to have pulmonary edema based on the x-ray performed at [facility]. He was seen in emergency room and was noted to have acute anemia with at least a hemoglobin drop of 2.5 g in 3 weeks, she is chronically on Xarelto. Patient was noted to be Hemoccult positive, and anticoagulation is currently on hold with consultations to cardiology and pulmonary as well as gastroenterology . Patient denies any aspirate events she requires mechanical soft diet, She was last admitted from our facility 06/19/2016 to secondary to difficulty in breathing at that time echocardiogram showed ejection fraction of 55-60%, moderate pulmonary hypertension with moderate concentric LVH, mild aortic valve sclerosis without stenosis, severe mitral regurgitation, LA size dilated 4.0, anterior atrial septal aneurysm and was discharged to [facility] Review of Systems Constitutional: Reports as per HPI, Denies anorexia, Denies chills, Denies chronic headaches, Denies chronic pain, Denies daytime sleepiness, Denies fatigue, Denies fever, Denies lethargy, Denies malaise, Denies night sweats, Denies poor appetite, Denies sweats, Denies weakness, Denies weight gain, Denies weight loss Ears, nose, mouth and throat: Reports as per HPI, Denies ant. neck pain, Denies bleeding gums, Denies dental pain, Denies dysphagia, Denies epistaxis, Denies headache, Denies hoarseness, Denies mouth pain, Denies nasal congestion, Denies nasal discharge, Denies neck fullness/pressure, Denies neck lump, Denies nose pain, Denies odynophagia, Denies post-nasal drip, Denies sinus pain, Denies sinus pressure, Denies swelling in mouth, Denies swelling in throat, Denies sore throat, Denies vertigo, Denies voice changes Breasts: absent: change in shape, gynecomastia, masses, nipple discharge Cardiovascular: Reports as per HPI, Reports dyspnea on exertion, Reports edema, Reports paroxysmal nocturnal dyspnea, Reports shortness of breath, Denies chest pain, Denies claudication, Denies decreased exercise tolerance, Denies high blood pressure, Denies irregular heart beat, Denies leg edema, Denies lightheadedness, Denies orthopnea, Denies palpitations, Denies phlebitis, Denies rapid heart beat, Denies syncope Respiratory: Reports as per HPI, Reports congestion, Reports dyspnea, Reports home oxygen, Denies cough, Denies cough with sputum, Denies excessive sputum, Denies hemoptysis, Denies pain, Denies pain on inspiration, Denies pleurisy, Denies respiratory infections, Denies sleep apnea, Denies snoring, Denies wheezing Gastrointestinal: Reports as per HPI, Denies abdominal pain, Denies belching, Denies bloating, Denies BRBPR, Denies change in bowel habits, Denies coffee ground emesis, Denies constipation, Denies diarrhea, Denies dyspepsia, Denies early satiety, Denies excessive gas, Denies heartburn, Denies hematemesis, Denies hematochezia, Denies indigestion, Denies jaundice, Denies lactose intolerance, Denies loss of appetite, Denies melena, Denies nausea, Denies vomiting Genitourinary: Reports as per HPI, Denies abnormal vaginal bleeding, Denies decreased libido, Denies difficulty conceiving, Denies difficulty voiding, Denies dysmenorrhea, Denies dyspareunia, Denies dysuria, Denies flank pain, Denies genital sores, Denies hematuria, Denies hot flashes, Denies incomplete emptying, Denies kidney stones, Denies menorrhagia, Denies mixed incontinence, Denies nocturia, Denies pelvic pain, Denies post void dribbling, Denies , Denies prolapse symptoms, Denies stress incontinence, Denies urge incontinence , Denies urgency, Denies urinary frequency, Denies vaginal discharge, Denies vaginal dryness, Denies vaginal itching, Denies vaginal odor Menstruation: Reports as per HPI, Reports postmenopausal, Denies amenorrhea, Denies amenorrhea on BC, Denies currently menstrual, Denies cycle < 21 days, Denies cycle > 35 days, Denies cycle variable, Denies menses 1-7 days, Denies menses 8 or > days, Denies menses variable, Denies period heavy, Denies period light, Denies period normal, Denies period spotting, Denies post hysterectomy, Denies premenarcheal Musculoskeletal: Reports as per HPI, Reports gait dysfunction, Reports limitation of motion, Denies arm numbness/tingling, Denies atrophy, Denies fractures, Denies frequent falls, Denies hot joints, Denies leg numbness/ tingling, Denies loss of height, Denies low back pain, Denies morning stiffness , Denies muscle cramps, Denies muscle weakness, Denies myalgias, Denies neck pain, Denies neck stiffness, Denies prior amputations, Denies redness of joints , Denies shooting arm pain, Denies shooting leg pain Integumentary: Reports as per HPI, Denies acne, Denies boils, Denies brittle nails, Denies change in hair/nails, Denies color changes, Denies darkening of skin, Denies depigmentation, Denies dryness, Denies foot/leg ulcers, Denies growths, Denies hirsutism, Denies lesions, Denies onychomycosis, Denies pruritus , Denies rash, Denies sores, Denies striae, Denies unusual bruising, Denies wounds Neurological: Reports as per HPI Psychiatric: Reports as per HPI Endocrine: Reports as per HPI Past Medical History Past Medical History: Atrial Fibrillation, Coronary Artery Disease (CAD), Heart Failure, COPD, Hyperlipidemia, Hypertension, Myocardial Infarction (SD), Osteoarthritis (OA), Pneumonia, Renal Disease, Thyroid Disorder Additional Past Medical History / Comment(s): uti, rt eye mac degeneration, o2 dependant 2 liters n/c, ddd Last Myocardial Infarction Date:: 1985 History of Any Multi-Drug Resistant Organisms: None Reported Past Surgical History: Back Surgery, Cholecystectomy, Hernia Repair, Hysterectomy Additional Past Surgical History / Comment(s): tear duct surg , back fusion Past Anesthesia/Blood Transfusion Reactions: No Reported Reaction Past Psychological History: Anxiety, Depression Smoking Status: Former smoker Past Alcohol Use History: None Reported Additional Past Alcohol Use History / Comment(s): She was a smoker one pack per day for 30-40 years and quit 45 years ago. No illicit drug use or alcohol use. Patient lived at home and her son and [id number] live with her until went to [facility] in june for rehab. recieving pt at [facility] Past Drug Use History: None Reported - Past Family History Mother Family Medical History: Diabetes Mellitus, Hypertension Additional Family Medical History / Comment(s): Mother at age 65 with history of diabetes and hypertension. Father Additional Family Medical History / Comment(s): Father at age 64 from unknown cancer. Brother(s) Additional Family Medical History / Comment(s): Patient has 2 half brothers that during war. She does not have any sisters. Son(s) Additional Family Medical History / Comment(s): She has one son with no major medical problems. Medications and Allergies Home Medications Medication Instructions Recorded Confirmed Type Budesonide [Pulmicort] 0.5 mg INHALATION RT-BID 08/22/13 07/15/16 History Citalopram Hydrobromide [CeleXA] 10 mg PO DAILY 08/22/13 07/15/16 History Levothyroxine Sodium [Levoxyl] 50 mcg PO DAILY 08/22/13 07/15/16 History Epinastine Eye Drops 1 drop BOTH EYES BID 01/29/16 07/15/16 History Sucralfate [Carafate] 1 gm PO QID 01/29/16 07/15/16 History Bumetanide [BUMEX] 1 mg PO SUTUTHSA 01/30/16 07/15/16 History Bumetanide [BUMEX] 2 mg PO MOWEFR 06/18/16 07/15/16 History Polyethylene Glycol 3350 [Miralax] 17 gm PO HS 06/18/16 07/15/16 History cloNIDine HCL [Catapres] 0.1 mg PO DAILY PRN 06/18/16 07/15/16 History Metoprolol Tartrate [Lopressor] 25 mg PO BID 06/21/16 07/15/16 History Aspirin 81 mg PO DAILY@1700 07/15/16 07/15/16 History Bisacodyl [Dulcolax] 10 mg RECTAL DAILY PRN 07/15/16 07/15/16 History Diazepam [Valium] 10 mg PO BID PRN 07/15/16 07/15/16 History Diazepam [Valium] 10 mg PO DAILY@2100 07/15/16 07/15/16 History Ensure Clear 1 can PO TID-W/MEALS 07/15/16 07/15/16 History HYDROcodone/APAP 5-325MG [[place] 1 tab PO Q6HR PRN 07/15/16 07/15/16 History 5-325] Ipratropium [place] 0.06%Nasal 2 spray EA NOSTRIL TID 07/15/16 07/15/16 History [Atrovent Nasal 0.06%] Magnesium Hydroxide [Milk of 2,400 mg PO DAILY PRN 07/15/16 07/15/16 History Magnesia] Na Phos,M-B/Na Phos,Di-Ba [Fleet 133 ml RECTAL DAILY PRN 07/15/16 07/15/16 History Adult] Natural Balance Tears 2 drops BOTH EYES DAILY PRN 07/15/16 07/15/16 History Ondansetron [Zofran] 4 mg PO Q6H PRN 07/15/16 07/15/16 History Rivaroxaban [Xarelto] 15 mg PO DAILY@1700 07/15/16 07/15/16 History Allergies Allergy/AdvReac Type Severity Reaction Status Date / Time albuterol [From DuoNeb] Allergy Itching Verified 07/15/16 09:05 ampicillin Allergy Unknown Verified 07/15/16 09:05 aspirin Allergy Nausea & Verified 07/15/16 09:05 Vomiting atenolol [From Tenormin] Allergy Unknown Verified 07/15/16 09:05 atorvastatin calcium Allergy Unknown Verified 07/15/16 09:05 [From Lipitor] budesonide [From Symbicort] Allergy Itching Verified 07/15/16 09:05 ezetimibe [From Zetia] Allergy Unknown Verified 07/15/16 09:05 fluoxetine HCl [From Prozac] Allergy Unknown Verified 07/15/16 09:05 fluticasone Allergy Itching Verified 07/15/16 09:05 [From Advair Diskus] formoterol [From Symbicort] Allergy Itching Verified 07/15/16 09:05 ipratropium [From DuoNeb] Allergy Itching Verified 07/15/16 09:05 metoprolol tartrate Allergy Unknown Verified 07/15/16 09:05 [From Lopressor] mirtazapine Allergy Unknown Verified 07/15/16 09:05 morphine Allergy Unknown Verified 07/15/16 09:05 oxycodone [Oxycodone] Allergy Unknown Verified 07/15/16 09:05 oxycodone HCl [From Percocet] Allergy Unknown Verified 07/15/16 09:05 propranolol HCl Allergy Unknown Verified 07/15/16 09:05 [From Inderal LA] salmeterol Allergy Itching Verified 07/15/16 09:05 [From Advair Diskus] Sulfa (Sulfonamide Allergy Unknown Verified 07/15/16 09:05 Antibiotics) verapamil [Verapamil] Allergy Unknown Verified 07/15/16 09:05 Physical Exam Vitals: Vital Signs Temp Pulse Pulse Resp BP BP Pulse Ox 07/15/16 16:20 70 18 112/61 96 07/15/16 14:03 97.0 F L 64 16 119/61 97 07/15/16 13:20 77 18 104/59 97 Intake and Output 07/15/16 07/15/16 07/15/16 06:59 14:59 22:59 Other: # Bowel Movements 1 - Constitutional General appearance: cooperative, thin (Frail looking) - EENT Eyes: anicteric sclerae, EOMI, PERRLA, poor dentition ENT: hearing grossly normal, NA/AT - Neck Neck: normal ROM - Respiratory Respiratory: bilateral: diminished, rales, prolonged expiration, negative: CTA, dullness, rhonchi - Cardiovascular Rhythm: irregularly irregular Heart sounds: normal: S1 Abnormal Heart Sounds: systolic murmur - Gastrointestinal General gastrointestinal: soft, tenderness (generalized) - Integumentary Integumentary: decreased turgor, normal, normal turgor - Neurologic Neurologic: CNII-XII intact - Musculoskeletal Musculoskeletal: generalized weakness - Psychiatric Psychiatric: A&O x's 3, appropriate affect Results CBC & Chem 7: 07/15/16 09:48 07/15/16 09:48 Labs: Abnormal Lab Results - Last 24 Hours (Table) 07/15/16 Range/Units 14:25 Ur Leukocyte Esterase Trace H (Negative) Amorphous Sediment Rare H (None) /hpf Hyaline Casts 8 H (0-2) /lpf Urine Mucus Rare H (None) /hpf Laboratory Results WBC 7.2 k/uL (3.8-10.6) 07/15/16 09:48 RBC 2.82 m/uL (3.80-5.40) L 07/15/16 09:48 Hgb 8.4 gm/dL (11.4-16.0) L 07/15/16 09:48 Hct 25.0 % (34.0-46.0) L 07/15/16 09:48 MCV 88.7 fL (80.0-100.0) 07/15/16 09:48 MCH 29.7 pg (25.0-35.0) 07/15/16 09:48 MCHC 33.5 g/dL (31.0-37.0) 07/15/16 09:48 RDW 16.0 % (11.5-15.5) H 07/15/16 09:48 Plt Count 171 k/uL (150-450) 07/15/16 09:48 Neutrophils % 82 % 07/15/16 09:48 Lymphocytes % 11 % 07/15/16 09:48 Monocytes % 3 % 07/15/16 09:48 Eosinophils % 3 % 07/15/16 09:48 Basophils % 0 % 07/15/16 09:48 Neutrophils # 5.9 k/uL (1.3-7.7) 07/15/16 09:48 Lymphocytes # 0.8 k/uL (1.0-4.8) L 07/15/16 09:48 Monocytes # 0.2 k/uL (0-1.0) 07/15/16 09:48 Eosinophils # 0.2 k/uL (0-0.7) 07/15/16 09:48 Basophils # 0.0 k/uL (0-0.2) 07/15/16 09:48 Manual Slide Review Performed 07/15/16 09:48 Polychromasia Present 07/15/16 09:48 Hypochromasia Marked 07/15/16 09:48 Poikilocytosis Slight 07/15/16 09:48 Anisocytosis Slight 07/15/16 09:48 PT 16.4 sec (9.0-12.0) H 07/15/16 09:48 INR 1.7 (<1.1) 07/15/16 09:48 APTT 30.7 sec (22.0-30.0) H 07/15/16 09:48 Sodium 138 mmol/L (137-145) 07/15/16 09:48 Potassium 5.4 mmol/L (3.5-5.1) H 07/15/16 09:48 Chloride 96 mmol/L (98-107) L 07/15/16 09:48 Carbon Dioxide 32 mmol/L (22-30) H 07/15/16 09:48 Anion Gap 10 mmol/L 07/15/16 09:48 BUN 37 mg/dL (7-17) H 07/15/16 09:48 Creatinine 1.54 mg/dL (0.52-1.04) H 07/15/16 09:48 Est GFR (MDRD) Af Amer 39 (>60 ml/min/1.73 sqM) 07/15/16 09:48 Est GFR (MDRD) Non-Af 32 (>60 ml/min/1.73 sqM) 07/15/16 09:48 Glucose 101 mg/dL (74-99) H 07/15/16 09:48 Plasma Lactic Acid Mason 1.6 mmol/L (0.7-2.0) 07/15/16 09:48 Calcium 9.3 mg/dL (8.4-10.2) 07/15/16 09:48 Magnesium 2.0 mg/dL (1.6-2.3) 07/15/16 09:48 Total Bilirubin 0.6 mg/dL (0.2-1.3) 07/15/16 09:48 AST 93 U/L (14-36) H 07/15/16 09:48 ALT 71 U/L (9-52) H 07/15/16 09:48 Alkaline Phosphatase 134 U/L (38-126) H 07/15/16 09:48 Total Creatine Kinase 45 U/L (30-135) 07/15/16 09:48 CK-MB (CK-2) 2.3 ng/mL (0.0-2.4) 07/15/16 09:48 CK-MB (CK-2) Rel Index 5.1 07/15/16 09:48 Troponin I 0.153 ng/mL (0.000-0.034) H* 07/15/16 09:48 Total Protein 6.5 g/dL (6.3-8.2) 07/15/16 09:48 Albumin 2.8 g/dL (3.5-5.0) L 07/15/16 09:48 Urine Color Yellow 07/15/16 14:25 Urine Appearance Clear (Clear) 07/15/16 14:25 Urine pH 5.0 (5.0-8.0) 07/15/16 14:25 Ur Specific Harvey 1.010 (1.001-1.035) 07/15/16 14:25 Urine Protein Negative (Negative) 07/15/16 14:25 Urine Glucose (UA) Negative (Negative) 07/15/16 14:25 Urine Ketones Negative (Negative) 07/15/16 14:25 Urine Blood Negative (Negative) 07/15/16 14:25 Urine Nitrite Negative (Negative) 07/15/16 14:25 Urine Bilirubin Negative (Negative) 07/15/16 14:25 Urine Urobilinogen <2.0 mg/dL (<2.0) 07/15/16 14:25 Ur Leukocyte Esterase Trace (Negative) H 07/15/16 14:25 Urine WBC 4 /hpf (0-5) 07/15/16 14:25 Ur Squamous Epith Cells 2 /hpf (0-4) 07/15/16 14:25 Amorphous Sediment Rare /hpf (None) H 07/15/16 14:25 Hyaline Casts 8 /lpf (0-2) H 07/15/16 14:25 Urine Mucus Rare /hpf (None) H 07/15/16 14:25 Stool Occult Blood Positive (Negative) H 07/15/16 12:20 Blood Type O Negative 07/15/16 11:40 Blood Type Recheck No 07/15/16 11:40 Antibody Screen NEGATIVE 07/15/16 11:40 Spec Expiration Date 07/18/2016233907/15/16 11:40 Assessment and Plan Plan: 1. Shortness of breath multifactorial secondary to pulmonary fibrosis, COPD exacerbation pulmonary hypertension and chronic diastolic heart failure. As well as pulmonary edema Patient currently is on IV Lasix 20 mg every 8 hours, gentle diuresing, patient is labile, has multiple side effects with nebulized treatments mainly on the beta agonist. She currently is on maintenance Pulmicort 0.5 mg twice a day consult to Dr. ARMANDO Rayo cardiology. C 2. Acute blood loss anemia patient's on anticoagulation which has to be held, significant for gram blood loss anemia noted 3 weeks, consults were made with Dr. Isbell from gastroenterology, Xarelto is on hold hemoglobin to be titrated, might need blood transfusion, iron studies to be obtained 3. Pulmonary fibrosis currently on nebulized Pulmicort 4. Dehydration with CK D stage II, acute kidney failure previous creatinine was 0.83 06/23/2016 admitting creatinine was 1.54 5. Acute on chronic hypoxic respiratory failure on maintenance 2 L O2 at home by nasal cannula 6. Severe mitral regurgitation and mild mitral valve prolapse cardiology will be seeing the patient no plans for surgical intervention at this time 7. Hyperglycemia with no previous diagnosis of diabetes mellitus most likely related to steroid use. Hemoglobin A1c will be obtained 8. BMI of 16 with severe protein calorie malnutrition supplement boost will be ordered 10. Tremors with essential tremors at suspected patients at risk for falls patient was seen by physical therapy baseline would be walkerassist. Expected discharged to skilled ECF [facility] 7. Recent falls without any traumatic complications. Since and by physical therapy requiring walker assist patient currently is on anticoagulation and needs to be monitored closely for further needs to discontinue these should be risk outweighed the benefits 8. GERD on maintenance Carafate 9. CAD with prior SD in 1985 10. Hypothyroidismon levothyroxine 50 g daily 11. Chronic anticoagulation using Xarelto for A. fib 12. 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 Consult with Dr. Elizabeth Markham added. From [facility] she had been on mechanical soft diet aspiration precautions 13. History of Hyperglycemia steroid induced, no recent hemoglobin A1c, last hemoglobin A1c January 2016 at 5.9 13. CODE STATUS DO NOT RESUSCITATE 14. Discharge planning expected return to [facility] upon discharge from our facility 15. Prognosis guarded 16. Low BMI under 19, albumin in shows moderate protein calorie malnutrition supplements as ordered at 3 times a day 17. Elevated liver function tests most likely secondary to CHF
[2016-07-15] MEDS: SUCRALFATE 1 GM TAB PO SCH ×2 (18:32→22:47)
[2016-07-15] MEDS: BUDESONIDE 0.5 MG/2 ML NEBU INHALATION SCH (22:03)
[2016-07-15] MEDS: METOPROLOL TARTRATE 25 MG TAB PO SCH (22:45)
[2016-07-15] MEDS: IPRATROPIUM BROMIDE 0.06% NASAL SPRAY (15 ML) EA NOSTRIL SCH (22:46)
[2016-07-15] MEDS: FUROSEMIDE 10 MG/ML 2 ML VIAL IV SCH (22:47)
[2016-07-15] MEDS: DIAZEPAM 5 MG TAB PO SCH (22:49)
[2016-07-16] MEDS: DIAZEPAM 5 MG TAB PO SCH ×2 (00:03→21:33)
[2016-07-16] MEDS: FUROSEMIDE 10 MG/ML 2 ML VIAL IV SCH ×3 (05:17→21:34)
[2016-07-16 06:08] LABS: Basophils % (A) 0 %; CH 26.5; CHCM 29.4; Eosinophils # (A) 0.1 k/uL (0-0.7); Eosinophils % (A) 2 %; HCT 28.7 % (34.0-46.0); HDW 3.36; HGB 8.3 gm/dL (11.4-16.0); Hypochromasia Marked; Luc % (Auto) 2; Lymphocytes # (A) 0.7 k/uL (1.0-4.8); Lymphocytes % (A) 10 %; MCH 26.2 pg (25.0-35.0); MCHC 28.8 g/dL (31.0-37.0); MCV 90.9 fL (80.0-100.0); Mean Platelet Volume 7.8; Monocytes # (A) 0.3 k/uL (0-1.0); Monocytes % (A) 4 %; Neutrophils # (A) 5.1 k/uL (1.3-7.7); Neutrophils % (A) 81 %; RBC 3.16 m/uL (3.80-5.40); RDW 15.6 % (11.5-15.5); WBC 6.2 k/uL (3.8-10.6); WBC (Perox) 6.71
[2016-07-16 06:17] LABS: Calcium 8.9 mg/dL (8.4-10.2); Potassium 4.2 mmol/L (3.5-5.1); Total Bilirubin 0.5 mg/dL (0.2-1.3); Total Protein 5.6 g/dL (6.3-8.2)
[2016-07-16] MEDS: LEVOTHYROXINE 50 MCG TAB PO SCH (06:21)
[2016-07-16] MEDS ORDERED: NON-FORMULARY DRUG (Ensure Clear 1 CAN) PO SCH (07:30)
[2016-07-16 07:57] LABS: Hemoglobin A1C 5.8 % (4.2-6.1)
[2016-07-16] MEDS: BUDESONIDE 0.5 MG/2 ML NEBU INHALATION SCH ×2 (08:20→21:26)
[2016-07-16] MEDS: METOPROLOL TARTRATE 25 MG TAB PO SCH ×2 (09:06→21:34)
[2016-07-16] MEDS: ISOSORBIDE MONONITRATE ER 30 MG TAB.ER.24H PO SCH (09:06)
[2016-07-16] MEDS: IPRATROPIUM BROMIDE 0.06% NASAL SPRAY (15 ML) EA NOSTRIL SCH ×3 (09:06→21:33)
[2016-07-16] MEDS: CITALOPRAM HYDROBROMIDE 10 MG TAB PO SCH (09:06)
[2016-07-16] MEDS: SUCRALFATE 1 GM TAB PO SCH ×4 (09:07→21:34)
--- NOTE | 2016-07-16 12:05 | CONS ---
DATE OF CONSULTATION: 07/16/2016 REASON FOR CONSULTATION: Anemia and Hemoccult positive stool. HISTORY OF PRESENT ILLNESS: The patient is an 81-year-old pleasant lady with history of A. fib, COPD, hypothyroidism, and congestive heart failure who is on chronic anticoagulation with Xarelto, was admitted to the hospital because of increasing shortness of breath for the last 2 to 3 days duration. In the emergency room, she was noted to have anemia with a hemoglobin of 8.5 g/dL and hence we are consulted in regards to this issue. She was also noted to have Hemoccult-positive stool. On further questioning the patient, however, denies any abdominal pain. She reports no nausea, vomiting. Denies any rectal bleeding or melena. She does not recall last endoscopic intervention. However, she continues to complain of severe shortness of breath. She denies any chest pains. Her past medical history is significant for coronary artery disease, congestive heart failure, COPD, on home O2, A. fib on anticoagulation with Xarelto, degenerative joint disease, hypothyroidism. PAST SURGICAL HISTORY: Cholecystectomy, back surgery, hernia repair, hysterectomy. SOCIAL HISTORY: Chronic smoker in the past, but she quit many years ago. No alcohol use. FAMILY HISTORY: Mother had diabetes mellitus and hypertension. Father had at age 64. Brother has coronary artery disease. Medications at home include Pulmicort, Celexa, Levoxyl, Carafate, Bumex, Catapres, Lopressor, Dulcolax, Scroggins, milk of magnesia, Zofran, Xarelto. ALLERGIES: TENORMIN, DUONEB, PROZAC, SYMBICORT, ZETIA, LOPRESSOR, MIRTAZAPINE, ADVAIR, SULFA, VERAPAMIL, PROPRANOLOL, OXYCODONE. REVIEW OF SYSTEMS: CARDIOPULMONARY: She does complain of shortness of breath, but she denies any chest pain. NEUROLOGICAL: Unremarkable. PSYCHIATRY: Unremarkable. ENT/VISION: Unremarkable. CONSTITUTIONAL: No recent weight loss. GI: As mentioned above. MUSCULOSKELETAL: Chronic back pain. ENDOCRINE: Unremarkable. HEMATOLOGY: Anemia. PHYSICAL EXAMINATION: She appears comfortable in no apparent distress. Vital signs are stable. Blood pressure is 117/63, pulse is 71, temperature 96.8, respirations 16. HEENT EXAMINATION: Unremarkable. Conjunctivae pink. Sclerae anicteric. Oral cavity, no lesions. NECK: No JVD or lymph node enlargement. CHEST: Clear breath sounds bilaterally. HEART: Regular rate and rhythm. ABDOMEN: Soft. It was nontender, nondistended. Liver and spleen were not palpable. Bowel sounds are positive. No organomegaly. EXTREMITIES: No pedal edema. SKIN: No rashes. NEURO: She is alert and oriented x3. No focal deficits. Labs at the time of admission to the hospital, hemoglobin was 8.4, WBC 7.2, platelets are normal. MCV is normal at 90. BUN is 38, creatinine 1.23. INR 1.7. AST and ALT 93 and 71 respectively. Troponin was elevated at 0.105. Stool Hemoccult was positive. IMPRESSION: 1. This is a lady who presents to the hospital because of worsening shortness of breath and she was noted to have anemia with a hemoglobin of 8.4 g/dL. Three months ago, her hemoglobin was 10.2 g/dL. Clinically the patient does not have any evidence of active ongoing bleeding. In fact she does not have any gastrointestinal symptoms. She has history of chronic atrial fibrillation and has been on oral anticoagulation with Xarelto for the last several years' duration. She was noted to have a Hemoccult-positive stool. She does not recall having any endoscopic intervention in the past. I reviewed the medical records and no EGD or colonoscopy in the last 3 years at this hospital. 2. Mild elevation of troponin. Cardiology has been consulted. 3. Exacerbation of chronic obstructive pulmonary disease/congestive heart failure. 4. Chronic atrial fibrillation on Xarelto. RECOMMENDATIONS: 1. Will obtain iron studies today. 2. Continue with a clear liquid diet and advance as tolerated. 3. Given her overall medical condition, she will not be a candidate for any endoscopic intervention at the present time. The plan was discussed with the patient and she is agreeable to it. Thank you for this consultation.
--- NOTE | 2016-07-16 12:36 | P.CRDCN ---
History of Present Illness Consult date: 07/16/16 Requesting physician: Jumana Rios Consult reason: shortness of breath Chief complaint: Shortness of breath History of present illness: This is a pleasant 81-year-old female with history of chronic persistent atrial fibrillation, congestive cardiac failure, diastolic in nature , COPD, hypothyroidism, who presented to the hospital with symptoms of progressively worsening shortness of breath. Patient most recently had an echocardiogram with Doppler study performed in June of this year which revealed an ejection fraction of 55-60% with evidence of moderate pulmonary hypertension and moderate concentric LVH, severe mitral regurgitation. Patient states she also gets intermittent heaviness in her chest, worsens with cough and deep breathing. Patient resides at [facility], apparently had a chest x-ray performed there which revealed pulmonary edema, this reason she was admitted to the hospital for further evaluation. Hemoglobin on admission here was 8.4, on her most recent admission to the hospital in June of this year, her hemoglobin was 14.5. Patient is on Xarelto for anticoagulation. Potassium on admission 5.4, BUN 37, creatinine 1.5. This morning the potassium is 4.2, BUN 38, creatinine 1.2. AST on admission 93, this morning 42, ALT on admission 71, this morning 54. Alk phos 134, 108 this morning. Troponins 0.15, 0.13, 0.10. Stool for occult blood is positive. Chest x-ray performed here revealed CHF exacerbation on the background of chronic emphysema. Small bilateral pleural effusions. EKG on admission shows atrial fibrillation with a Blood pressure 102 /60 with a heart rate in the 60s. 91% on 3 L of oxygen. Patient was initiated on IV Lasix in the emergency room, 20 mg every 8 hourly. She does state that she is urinating, but not anymore than her usual. There is also a consultation put in for GI service because of the anemia. Past Medical History Past Medical History: Atrial Fibrillation, Coronary Artery Disease (CAD), Heart Failure, COPD, Hyperlipidemia, Hypertension, Myocardial Infarction ([place]), Osteoarthritis (OA), Pneumonia, Renal Disease, Thyroid Disorder Additional Past Medical History / Comment(s): uti, rt eye mac degeneration, o2 dependant 2 liters n/c, ddd Last Myocardial Infarction Date:: 1985 History of Any Multi-Drug Resistant Organisms: None Reported Past Surgical History: Back Surgery, Cholecystectomy, Hernia Repair, Hysterectomy Additional Past Surgical History / Comment(s): tear duct surg , back fusion Past Anesthesia/Blood Transfusion Reactions: No Reported Reaction Past Psychological History: Anxiety, Depression Smoking Status: Former smoker Past Alcohol Use History: None Reported Additional Past Alcohol Use History / Comment(s): She was a smoker one pack per day for 30-40 years and quit 45 years ago. No illicit drug use or alcohol use. Patient lived at home and her son and [id number] live with her until went to [facility] in june for rehab. recieving pt at [facility] Past Drug Use History: None Reported - Past Family History Mother Family Medical History: Diabetes Mellitus, Hypertension Additional Family Medical History / Comment(s): Mother at age 65 with history of diabetes and hypertension. Father Additional Family Medical History / Comment(s): Father at age 64 from unknown cancer. Brother(s) Additional Family Medical History / Comment(s): Patient has 2 half brothers that during war. She does not have any sisters. Son(s) Additional Family Medical History / Comment(s): She has one son with no major medical problems. Medications and Allergies Home Medications Medication Instructions Recorded Confirmed Type Budesonide [Pulmicort] 0.5 mg INHALATION RT-BID 08/22/13 07/15/16 History Citalopram Hydrobromide [CeleXA] 10 mg PO DAILY 08/22/13 07/15/16 History Levothyroxine Sodium [Levoxyl] 50 mcg PO DAILY 08/22/13 07/15/16 History Epinastine Eye Drops 1 drop BOTH EYES BID 01/29/16 07/15/16 History Sucralfate [Carafate] 1 gm PO QID 01/29/16 07/15/16 History Bumetanide [BUMEX] 1 mg PO SUTUTHSA 01/30/16 07/15/16 History Bumetanide [BUMEX] 2 mg PO MOWEFR 06/18/16 07/15/16 History Polyethylene Glycol 3350 [Miralax] 17 gm PO HS 06/18/16 07/15/16 History cloNIDine HCL [Catapres] 0.1 mg PO DAILY PRN 06/18/16 07/15/16 History Metoprolol Tartrate [Lopressor] 25 mg PO BID 06/21/16 07/15/16 History Aspirin 81 mg PO DAILY@1700 07/15/16 07/15/16 History Bisacodyl [Dulcolax] 10 mg RECTAL DAILY PRN 07/15/16 07/15/16 History Diazepam [Valium] 10 mg PO BID PRN 07/15/16 07/15/16 History Diazepam [Valium] 10 mg PO DAILY@2100 07/15/16 07/15/16 History Ensure Clear 1 can PO TID-W/MEALS 07/15/16 07/15/16 History HYDROcodone/APAP 5-325MG [Randolph 1 tab PO Q6HR PRN 07/15/16 07/15/16 History 5-325] Ipratropium Ogden 0.06%Nasal 2 spray EA NOSTRIL TID 07/15/16 07/15/16 History [Atrovent Nasal 0.06%] Magnesium Hydroxide [Milk of 2,400 mg PO DAILY PRN 07/15/16 07/15/16 History Magnesia] Na Phos,M-B/Na Phos,Di-Ba [Fleet 133 ml RECTAL DAILY PRN 07/15/16 07/15/16 History Adult] Natural Balance Tears 2 drops BOTH EYES DAILY PRN 07/15/16 07/15/16 History Ondansetron [Zofran] 4 mg PO Q6H PRN 07/15/16 07/15/16 History Rivaroxaban [Xarelto] 15 mg PO DAILY@1700 07/15/16 07/15/16 History Allergies Allergy/AdvReac Type Severity Reaction Status Date / Time albuterol [From DuoNeb] Allergy Itching Verified 07/15/16 09:05 ampicillin Allergy Unknown Verified 07/15/16 09:05 aspirin Allergy Nausea & Verified 07/15/16 09:05 Vomiting atenolol [From Tenormin] Allergy Unknown Verified 07/15/16 09:05 atorvastatin calcium Allergy Unknown Verified 07/15/16 09:05 [From Lipitor] budesonide [From Symbicort] Allergy Itching Verified 07/15/16 09:05 ezetimibe [From Zetia] Allergy Unknown Verified 07/15/16 09:05 fluoxetine HCl [From Prozac] Allergy Unknown Verified 07/15/16 09:05 fluticasone Allergy Itching Verified 07/15/16 09:05 [From Advair Diskus] formoterol [From Symbicort] Allergy Itching Verified 07/15/16 09:05 ipratropium [From DuoNeb] Allergy Itching Verified 07/15/16 09:05 metoprolol tartrate Allergy Unknown Verified 07/15/16 09:05 [From Lopressor] mirtazapine Allergy Unknown Verified 07/15/16 09:05 morphine Allergy Unknown Verified 07/15/16 09:05 oxycodone [Oxycodone] Allergy Unknown Verified 07/15/16 09:05 oxycodone HCl [From Percocet] Allergy Unknown Verified 07/15/16 09:05 propranolol HCl Allergy Unknown Verified 07/15/16 09:05 [From Inderal LA] salmeterol Allergy Itching Verified 07/15/16 09:05 [From Advair Diskus] Sulfa (Sulfonamide Allergy Unknown Verified 07/15/16 09:05 Antibiotics) verapamil [Verapamil] Allergy Unknown Verified 07/15/16 09:05 Physical Exam Vitals: Vital Signs Temp Pulse Pulse Resp BP BP Pulse Ox 07/16/16 11:43 66 18 07/16/16 11:10 66 18 102/55 91 L 07/16/16 08:28 72 07/16/16 08:20 72 07/16/16 08:00 96.8 F L 71 16 117/63 93 L 07/16/16 05:00 90 L 07/16/16 04:00 96.7 F L 79 18 132/70 85 L 07/16/16 03:00 99 07/16/16 00:00 96.9 F L 71 18 117/61 91 L 07/15/16 23:57 96 07/15/16 20:00 97.3 F L 76 18 125/65 98 07/15/16 17:47 16 91 L 07/15/16 16:20 70 18 112/61 96 07/15/16 14:03 97.0 F L 64 16 119/61 97 07/15/16 13:20 77 18 104/59 97 Intake and Output 07/15/16 07/16/16 07/16/16 22:59 06:59 14:59 Intake Total 120 Output Total 500 450 Balance -380 -450 Intake: IV 120 NS 120 Output: Urine 500 450 Other: Voiding Method Bedside Commode Bedpan Bedpan # Voids 1 # Bowel Movements 1 Weight 47 kg PHYSICAL EXAMINATION: HEENT: Head is atraumatic, normocephalic. Pupils equal, round. Neck is supple. There is no elevated jugular venous pressure. HEART EXAMINATION: Heart S1-S2 irregularly irregular a systolic murmur is heard. CHEST EXAMINATION: Lungs are clear with diminished air entry to bilateral bases. ABDOMEN: Soft, nontender. Bowel sounds are heard. No organomegaly noted. EXTREMITIES: 2+ peripheral pulses with no evidence of peripheral edema and no calf tenderness noted. NEUROLOGIC patient is awake, alert and oriented -3. . Results 07/16/16 05:47 07/16/16 05:47 Cardiac Enzymes 07/15/16 07/15/16 07/16/16 Range/Units 18:32 22:21 05:47 AST 42 H (14-36) U/L Troponin I 0.135 H* 0.104 H* (0.000-0.034) ng/mL 07/16/16 Range/Units 05:47 AST (14-36) U/L Troponin I 0.092 H* (0.000-0.034) ng/mL CBC 07/16/16 Range/Units 05:47 WBC 6.2 (3.8-10.6) k/uL RBC 3.16 L (3.80-5.40) m/uL Hgb 8.3 L (11.4-16.0) gm/dL Hct 28.7 L (34.0-46.0) % Plt Count 179 (150-450) k/uL Comprehensive Metabolic Panel 07/16/16 Range/Units 05:47 Sodium 139 (137-145) mmol/L Potassium 4.2 (3.5-5.1) mmol/L Chloride 96 L (98-107) mmol/L Carbon Dioxide 35 H (22-30) mmol/L BUN 38 H (7-17) mg/dL Creatinine 1.23 H (0.52-1.04) mg/dL Glucose 71 L (74-99) mg/dL Calcium 8.9 (8.4-10.2) mg/dL AST 42 H (14-36) U/L ALT 54 H (9-52) U/L Alkaline Phosphatase 108 (38-126) U/L Total Protein 5.6 L (6.3-8.2) g/dL Albumin 2.4 L (3.5-5.0) g/dL Current Medications Generic Name Dose Route Start Last Admin Trade Name Chacortaq PRN Reason Stop Dose Admin Hydrocodone Bitart/Acetaminophen 1 each 07/15/16 17:41 Randolph 5-325 PO Q6HR PRN Pain Bisacodyl 10 mg 07/15/16 17:41 Dulcolax RECTAL DAILY PRN Constipation Budesonide 0.5 mg 07/15/16 20:00 07/16/16 08:20 Pulmicort INHALATION 0.5 mg RT-BID NAM Administration Citalopram Hydrobromide 10 mg 07/16/16 09:00 07/16/16 09:06 Celexa PO 10 mg DAILY NAM Administration Clonidine 0.1 mg 07/15/16 17:41 Catapres PO DAILY PRN Blood Pressure - High Diazepam 10 mg 07/15/16 17:41 Valium PO BID PRN Anxiety Diazepam 10 mg 07/15/16 21:00 07/16/16 00:03 Valium PO Not Given DAILY@2100 [facility] Furosemide 20 mg 07/15/16 20:00 07/16/16 11:34 Lasix IV 20 mg Q8H [facility] Administration Ipratropium Ogden 2 spray 07/15/16 22:00 07/16/16 09:06 Atrovent Nasal EA NOSTRIL 2 spray TID [facility] Administration Isosorbide Mononitrate 30 mg 07/16/16 09:00 07/16/16 09:06 Imdur PO 30 mg DAILY [facility] Administration Levothyroxine Sodium 50 mcg 07/16/16 06:30 07/16/16 06:21 Synthroid PO 50 mcg DAILY@0630 [facility] Administration Metoprolol Tartrate 25 mg 07/15/16 21:00 07/16/16 09:06 Lopressor PO 25 mg BID [facility] Administration Nitroglycerin 0.4 mg 07/15/16 17:41 Nitrostat SUBLINGUAL Q5M PRN Chest Pain Non-Formulary Medication 1 drop 07/15/16 21:00 Epinastine Eye Drops BOTH EYES BID [facility] Sucralfate 1 gm 07/15/16 18:00 07/16/16 11:38 Carafate PO Not Given QID NAM Intake and Output 07/15/16 07/16/16 07/16/16 22:59 06:59 14:59 Intake Total 120 Output Total 500 450 Balance -380 -450 Intake: IV 120 NS 120 Output: Urine 500 450 Other: Voiding Method Bedside Commode Bedpan Bedpan # Voids 1 # Bowel Movements 1 Weight 47 kg 07/16/16 05:47 07/16/16 05:47 EKG Interpretations (text) EKG shows atrial fibrillation with a controlled ventricular response. Assessment and Plan Plan: Assessment and plan #1 symptoms of progressively worsening shortness of breath, likely secondary to diastolic congestive heart failure acute on chronic. #2 acute blood loss anemia, GI consult requested #3 pulmonary fibrosis #4 COPD #5 chronic persistent atrial fibrillation, on Xarelto for anticoagulation #6 severe mitral regurgitation with normal LV function on recent echo performed last month #7 hypothyroidism Plan From cardiology's perspective, we will continue the IV Lasix for 24 hours. Await GI consult regarding anemia. Xarelto's currently been placed on hold. Discontinue Nitropaste. Further recommendations to follow. DNP note has been reviewed, I agree with a documented findings and plan of care. Patient was seen and examined.
--- NOTE | 2016-07-16 15:13 | P.PN ---
Subjective this is a pleasant 81-year-old lady patient of Dr. Alvarez, Dr. Gan , She has underlying history of chronic atrial fibrillation, COPD, CHF, hypothyroidism and hypertension chronic anticoagulation with Xarelto, COPD, diastolic CHF, hypothyroidism, chronic hypoxemic respiratory failure with O2 from pulmonary fibrosis currently at [facility] for skilled rehabilitation, she was sent into the emergency room secondary to increasing shortness of breath and was noted to have pulmonary edema based on the x-ray performed at [facility]. He was seen in emergency room and was noted to have acute anemia with at least a hemoglobin drop of 2.5 g in 3 weeks, she is chronically on Xarelto. Patient was noted to be Hemoccult positive, and anticoagulation is currently on hold with consultations to cardiology and pulmonary as well as gastroenterology . Patient denies any aspirate events she requires mechanical soft diet, She was last admitted from our facility 06/19/2016 to secondary to difficulty in breathing at that time echocardiogram showed ejection fraction of 55-60%, moderate pulmonary hypertension with moderate concentric LVH, mild aortic valve sclerosis without stenosis, severe mitral regurgitation, LA size dilated 4.0, anterior atrial septal aneurysm and was discharged to [facility] 07/16: Patient's respiratory status remains poor. Cardiology has recommended continuing IV Lasix for another [address] Elizabeth Markham has evaluated the patient with no plan for intervention at this point. Speech therapy has been added and Megace added for poor appetite. Objective - Vital Signs Vital signs: Vital Signs Temp 96.8 F L 07/16/16 08:00 Pulse 72 07/16/16 08:28 Resp 16 07/16/16 08:00 BP 117/63 07/16/16 08:00 Pulse Ox 93 L 07/16/16 08:00 Intake & Output 07/15/16 07/16/16 07/16/16 18:59 06:59 18:59 Intake Total 120 Output Total 500 250 Balance -380 -250 Weight 47 kg Intake: IV 120 NS 120 Output: Urine 500 250 Other: Voiding Method Bedpan Bedpan # Voids 1 # Bowel Movements 1 1 - Exam General appearance: cooperative, thin (Frail looking) - EENT Eyes: anicteric sclerae, EOMI, PERRLA, poor dentition ENT: hearing grossly normal, NA/AT - Neck Neck: normal ROM - Respiratory Respiratory: bilateral: diminished, rales, prolonged expiration, negative: CTA, dullness, rhonchi - Cardiovascular Rhythm: irregularly irregular Heart sounds: normal: S1 Abnormal Heart Sounds: systolic murmur - Gastrointestinal General gastrointestinal: soft, tenderness (generalized) - Integumentary Integumentary: decreased turgor, normal, normal turgor - Neurologic Neurologic: CNII-XII intact - Musculoskeletal Musculoskeletal: generalized weakness - Psychiatric Psychiatric: A&O x's 3, appropriate affect - Labs CBC & Chem 7: 07/16/16 05:47 07/16/16 05:47 Labs: Abnormal Lab Results - Last 24 Hours (Table) 07/15/16 07/15/16 07/15/16 Range/Units 14:25 18:32 22:21 RBC (3.80-5.40) m/uL Hgb (11.4-16.0) gm/dL Hct (34.0-46.0) % MCHC (31.0-37.0) g/dL RDW (11.5-15.5) % Lymphocytes # (1.0-4.8) k/uL Chloride (98-107) mmol/L Carbon Dioxide (22-30) mmol/L BUN (7-17) mg/dL Creatinine (0.52-1.04) mg/dL Glucose (74-99) mg/dL AST (14-36) U/L ALT (9-52) U/L Troponin I 0.135 H* 0.104 H* (0.000-0.034) ng/mL Total Protein (6.3-8.2) g/dL Albumin (3.5-5.0) g/dL Ur Leukocyte Esterase Trace H (Negative) Amorphous Sediment Rare H (None) /hpf Hyaline Casts 8 H (0-2) /lpf Urine Mucus Rare H (None) /hpf 07/16/16 07/16/16 07/16/16 Range/Units 05:47 05:47 05:47 RBC 3.16 L (3.80-5.40) m/uL Hgb 8.3 L (11.4-16.0) gm/dL Hct 28.7 L (34.0-46.0) % MCHC 28.8 L (31.0-37.0) g/dL RDW 15.6 H (11.5-15.5) % Lymphocytes # 0.7 L (1.0-4.8) k/uL Chloride 96 L (98-107) mmol/L Carbon Dioxide 35 H (22-30) mmol/L BUN 38 H (7-17) mg/dL Creatinine 1.23 H (0.52-1.04) mg/dL Glucose 71 L (74-99) mg/dL AST 42 H (14-36) U/L ALT 54 H (9-52) U/L Troponin I 0.092 H* (0.000-0.034) ng/mL Total Protein 5.6 L (6.3-8.2) g/dL Albumin 2.4 L (3.5-5.0) g/dL Ur Leukocyte Esterase (Negative) Amorphous Sediment (None) /hpf Hyaline Casts (0-2) /lpf Urine Mucus (None) /hpf Assessment and Plan Plan: 1. Shortness of breath multifactorial secondary to pulmonary fibrosis, COPD exacerbation pulmonary hypertension and acute on chronic diastolic heart failure. As well as pulmonary edema Patient currently is on IV Lasix 20 mg every 8 hours, gentle diuresing, patient is labile, has multiple side effects with nebulized treatments mainly on the beta agonist. She currently is on maintenance Pulmicort 0.5 mg twice a day consult to Dr. ARMANDO Rayo cardiology. 2. Acute blood loss anemia patient's on anticoagulation which has to be held, significant for gram blood loss anemia noted 3 weeks, consults were made with Dr. Isbell from gastroenterology, Xarelto is on hold hemoglobin to be titrated, might need blood transfusion, iron studies to be obtained 3. Pulmonary fibrosis currently on nebulized Pulmicort 4. Dehydration with CK D stage II, acute kidney failure previous creatinine was 0.83 06/23/2016 admitting creatinine was 1.54 5. Acute on chronic hypoxic respiratory failure on maintenance 2 L O2 at home by nasal cannula 6. Severe mitral regurgitation and mild mitral valve prolapse cardiology will be seeing the patient no plans for surgical intervention at this time 7. Hyperglycemia with no previous diagnosis of diabetes mellitus most likely related to steroid use. Hemoglobin A1c will be obtained 8. BMI of 16 with severe protein calorie malnutrition supplement boost will be ordered 10. Tremors with essential tremors at suspected patients at risk for falls patient was seen by physical therapy baseline would be walkerassist. Expected discharged to [facility] 7. Recent falls without any traumatic complications. Since and by physical therapy requiring walker assist patient currently is on anticoagulation and needs to be monitored closely for further needs to discontinue these should be risk outweighed the benefits 8. GERD on maintenance Carafate 9. CAD with prior ME in 1985 10. Hypothyroidismon levothyroxine 50 g daily 11. Chronic anticoagulation using Xarelto for A. fib 12. 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 Consult with Dr. Elizabeth Markham added. From [facility] she had been on mechanical soft diet aspiration precautions 13. History of Hyperglycemia steroid induced, no recent hemoglobin A1c, last hemoglobin A1c January 2016 at 5.9 13. CODE STATUS DO NOT RESUSCITATE 14. Discharge planning expected return to [facility] upon discharge from our facility 15. Prognosis guarded 16. Low BMI under 19, severe protein calorie malnutrition supplements as ordered at 3 times a day. Megace added for appetite 17. Elevated liver function tests most likely secondary to CHF Discharge plan: Impression and plan of care have been directed as dictated by the signing physician. Gillian Ross nurse practitioner acting as scribe for signing physician. Time with Patient: Greater than 30
[2016-07-16] MEDS: MEGESTROL 400 MG/10 ML CUP PO SCH (16:48)
[2016-07-16] MEDS: HYDROcodone/APAP 5-325MG 1 EACH TAB PO PRN (18:38)
[2016-07-17 02:52] LABS: Magnesium 1.8 mg/dL (1.6-2.3); Potassium 3.9 mmol/L (3.5-5.1)
[2016-07-17] MEDS: FUROSEMIDE 10 MG/ML 2 ML VIAL IV SCH ×3 (05:10→20:40)
[2016-07-17 06:03] LABS: Basophils % (A) 0 %; CH 25.7; CHCM 29.5; Eosinophils # (A) 0.1 k/uL (0-0.7); Eosinophils % (A) 2 %; HCT 28.1 % (34.0-46.0); HDW 3.57; HGB 8.7 gm/dL (11.4-16.0); Hypochromasia Marked; Luc # (Auto) 0.13; Luc % (Auto) 2; Lymphocytes # (A) 0.8 k/uL (1.0-4.8); Lymphocytes % (A) 14 %; MCH 27.3 pg (25.0-35.0); Mean Platelet Volume 7.3; Monocytes # (A) 0.4 k/uL (0-1.0); Monocytes % (A) 6 %; Neutrophils # (A) 4.5 k/uL (1.3-7.7); Neutrophils % (A) 76 %; Poikilocytosis Slight; RBC 3.19 m/uL (3.80-5.40); RDW 15.2 % (11.5-15.5); WBC 5.9 k/uL (3.8-10.6); WBC (Perox) 6.22
[2016-07-17] MEDS: LEVOTHYROXINE 50 MCG TAB PO SCH (06:12)
[2016-07-17 06:15] LABS: ALT 45 U/L (9-52); AST 32 U/L (14-36); Alkaline Phosphatase 89 U/L (38-126); Anion Gap 6 mmol/L; Blood Urea Nitrogen 38 mg/dL (7-17); Calcium 8.6 mg/dL (8.4-10.2); Carbon Dioxide 34 mmol/L (22-30); Chloride 95 mmol/L (98-107); Glucose 97 mg/dL (74-99); Non-African American GFR(MDRD) 53 (>60 ml/min/1.73 sqM); Sodium 135 mmol/L (137-145); Total Bilirubin 0.5 mg/dL (0.2-1.3); Total Protein 5.3 g/dL (6.3-8.2)
[2016-07-17] MEDS: BUDESONIDE 0.5 MG/2 ML NEBU INHALATION SCH ×2 (07:45→19:18)
[2016-07-17] MEDS: CITALOPRAM HYDROBROMIDE 10 MG TAB PO SCH (08:36)
[2016-07-17] MEDS: MEGESTROL 400 MG/10 ML CUP PO SCH (08:37)
[2016-07-17] MEDS: METOPROLOL TARTRATE 25 MG TAB PO SCH ×2 (08:37→20:40)
[2016-07-17] MEDS: ISOSORBIDE MONONITRATE ER 30 MG TAB.ER.24H PO SCH (08:37)
[2016-07-17] MEDS: IPRATROPIUM BROMIDE 0.06% NASAL SPRAY (15 ML) EA NOSTRIL SCH ×2 (08:37→19:02)
[2016-07-17] MEDS: SUCRALFATE 1 GM TAB PO SCH ×4 (08:37→20:41)
[2016-07-17 13:59] LABS: Reticulocyte % 4.7 % (0.5-2.0)
[2016-07-17 14:09] LABS: % Iron Saturation 6.1 % (20-50)
--- NOTE | 2016-07-17 14:36 | P.PN ---
Subjective this is a pleasant 81-year-old lady patient of Dr. Alvarez, Dr. Gan , She has underlying history of chronic atrial fibrillation, COPD, CHF, hypothyroidism and hypertension chronic anticoagulation with Xarelto, COPD, diastolic CHF, hypothyroidism, chronic hypoxemic respiratory failure with O2 from pulmonary fibrosis currently at [facility] for skilled rehabilitation, she was sent into the emergency room secondary to increasing shortness of breath and was noted to have pulmonary edema based on the x-ray performed at [facility]. He was seen in emergency room and was noted to have acute anemia with at least a hemoglobin drop of 2.5 g in 3 weeks, she is chronically on Xarelto. Patient was noted to be Hemoccult positive, and anticoagulation is currently on hold with consultations to cardiology and pulmonary as well as gastroenterology . Patient denies any aspirate events she requires mechanical soft diet, She was last admitted from our facility 06/19/2016 to secondary to difficulty in breathing at that time echocardiogram showed ejection fraction of 55-60%, moderate pulmonary hypertension with moderate concentric LVH, mild aortic valve sclerosis without stenosis, severe mitral regurgitation, LA size dilated 4.0, anterior atrial septal aneurysm and was discharged to [facility] 07/16: Patient's respiratory status remains poor. Cardiology has recommended continuing IV Lasix for another [address] Elizabeth Markham has evaluated the patient with no plan for intervention at this point. Speech therapy has been added and Megace added for poor appetite. 07/17: Speech therapy has evaluated and she is continued on mechanical altered dysphagia diet. She is eating about 25% of her lunch. No choking was noted. Hemoglobin 8.7 and iron studies ordered. Cardiology has recommended continued IV Lasix for another 24 hour. Nitropaste was discontinued. She has been seen by Dr. Johnson tomorrow and she is not a candidate for endoscopy evaluation at this time. Objective - Vital Signs Vital signs: Vital Signs Temp 97.4 F L 07/17/16 11:04 Pulse 69 07/17/16 11:04 Resp 18 07/17/16 11:04 BP 102/48 07/17/16 11:04 Pulse Ox 97 07/17/16 11:04 Intake & Output 07/16/16 07/17/16 07/17/16 18:59 06:59 18:59 Intake Total 760 120 100 Output Total 750 200 Balance 10 -80 100 Weight 47 kg 45 kg Intake: IV 80 120 NS 80 120 Oral 680 100 Output: Urine 750 200 Other: Voiding Method Bedpan Bedpan Bedpan # Voids 1 1 - Exam General appearance: cooperative, thin (Frail looking) - EENT Eyes: anicteric sclerae, EOMI, PERRLA, poor dentition ENT: hearing grossly normal, NA/AT - Neck Neck: normal ROM - Respiratory Respiratory: bilateral: diminished, rales, prolonged expiration, negative: CTA, dullness, rhonchi - Cardiovascular Rhythm: irregularly irregular Heart sounds: normal: S1 Abnormal Heart Sounds: systolic murmur - Gastrointestinal General gastrointestinal: soft, tenderness (generalized) - Integumentary Integumentary: decreased turgor, normal, normal turgor - Neurologic Neurologic: CNII-XII intact - Musculoskeletal Musculoskeletal: generalized weakness - Psychiatric Psychiatric: A&O x's 3, appropriate affect - Labs CBC & Chem 7: 07/17/16 05:48 07/17/16 05:48 Labs: Abnormal Lab Results - Last 24 Hours (Table) 07/17/16 07/17/16 07/17/16 Range/Units 02:30 05:48 05:48 RBC 3.19 L (3.80-5.40) m/uL Hgb 8.7 L (11.4-16.0) gm/dL Hct 28.1 L (34.0-46.0) % Lymphocytes # 0.8 L (1.0-4.8) k/uL Sodium 135 L (137-145) mmol/L Chloride 95 L (98-107) mmol/L Carbon Dioxide 34 H (22-30) mmol/L BUN 38 H (7-17) mg/dL Iron 16 L (37-170) ug/dL TIBC 263 L (265-497) ug/dL % Saturation 6.1 L (20-50) % Total Protein 5.3 L (6.3-8.2) g/dL Albumin 2.3 L (3.5-5.0) g/dL Assessment and Plan Plan: 1. Shortness of breath multifactorial secondary to pulmonary fibrosis, COPD exacerbation pulmonary hypertension and acute on chronic diastolic heart failure. As well as pulmonary edema Patient currently is on IV Lasix 20 mg every 8 hours, gentle diuresing, patient is labile, has multiple side effects with nebulized treatments mainly on the beta agonist. She currently is on maintenance Pulmicort 0.5 mg twice a day consult to Dr. ARMANDO Rayo cardiology. 2. Acute blood loss anemia patient's on anticoagulation which has to be held, significant for gram blood loss anemia noted 3 weeks, consults were made with Dr. Isbell from gastroenterology, Xarelto is on hold hemoglobin to be titrated, might need blood transfusion, iron studies to be obtained 3. Pulmonary fibrosis currently on nebulized Pulmicort 4. Dehydration with CK D stage II, acute kidney failure previous creatinine was 0.83 06/23/2016 admitting creatinine was 1.54 5. Acute on chronic hypoxic respiratory failure on maintenance 2 L O2 at home by nasal cannula 6. Severe mitral regurgitation and mild mitral valve prolapse cardiology will be seeing the patient no plans for surgical intervention at this time 7. Hyperglycemia with no previous diagnosis of diabetes mellitus most likely related to steroid use. Hemoglobin A1c will be obtained 8. BMI of 16 with severe protein calorie malnutrition supplement boost will be ordered 9. Tremors with essential tremors at suspected patients at risk for falls patient was seen by physical therapy baseline would be walkerassist. Expected discharged to skilled [facility] 10. Recent falls without any traumatic complications. Since and by physical therapy requiring walker assist patient currently is on anticoagulation and needs to be monitored closely for further needs to discontinue these should be risk outweighed the benefits 11. GERD on maintenance Carafate 12. CAD with prior [place] in 1985 13. Hypothyroidismon levothyroxine 50 g daily 14. Chronic anticoagulation using Xarelto for A. fib 15. 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 Consult with Dr. Elizabeth Markham added. From [facility] she had been on mechanical soft diet aspiration precautions 16. History of Hyperglycemia steroid induced, no recent hemoglobin A1c, last hemoglobin A1c January 2016 at 5.9 17. CODE STATUS DO NOT RESUSCITATE 18. Discharge planning expected return to [facility] upon discharge from our facility 19. Prognosis guarded 20. Low BMI under 19, severe protein calorie malnutrition supplements as ordered at 3 times a day. Megace added for appetite 21. Elevated liver function tests most likely secondary to CHF Impression and plan of care have been directed as dictated by the signing physician. Gillian Ross nurse practitioner acting as scribe for signing physician. Time with Patient: Greater than 30
--- NOTE | 2016-07-17 17:26 | PN ---
DATE OF SERVICE: 07/17/2016 The patient is an 81-year-old pleasant lady admitted to the hospital with exacerbation of COPD. She has history of advanced COPD on home O2 and came to the hospital with shortness of breath. While in the hospital she was noted to have anemia with a hemoglobin of 8.5 and Hemoccult-positive stool and hence she was seen in consultation yesterday. The patient has history of chronic A. fib and has been on Xarelto for the last few years. Since being in the hospital she has not been complaining of any abdominal pain. No nausea or vomiting. No rectal bleeding or melena. On physical examination, she appears comfortable in no apparent distress. Vitals as are stable. CHEST: Decreased breath sounds bilaterally. HEART: Regular rate and rhythm. ABDOMEN: Soft. It was nontender. Slightly distended. EXTREMITIES: No pedal edema. SKIN: No rashes. NEURO: Alert and oriented x3. No focal deficits. Labs from today: Hemoglobin is 8.7, WBC is 5 and platelets are normal. BUN is 38, creatinine 1. Iron studies show an iron of 16, TIBC of 263, iron saturation 6.1% and serum ferritin 66. IMPRESSION: 1. Normocytic anemia and clinically no evidence of iron deficiency anemia. She does have a Hemoccult-positive stool, but that could be explained on the basis of anticoagulation with Xarelto. Clinically no evidence of active ongoing bleeding. 2. Chronic obstructive pulmonary disease on home O2 with exacerbation of chronic obstructive pulmonary disease. RECOMMENDATION: Given the patient's overall medical condition. I would not recommend any endoscopic intervention at the present time; however, if she drops her hemoglobin and has active bleeding, we will consider further work-up. At this time, will continue with conservative approach. Thank you for this consultation.
[2016-07-17] MEDS: DIAZEPAM 5 MG TAB PO SCH (20:43)
[2016-07-18] MEDS: FUROSEMIDE 10 MG/ML 2 ML VIAL IV SCH ×3 (04:53→20:58)
[2016-07-18] MEDS: HYDROcodone/APAP 5-325MG 1 EACH TAB PO PRN (05:32)
[2016-07-18] MEDS: LEVOTHYROXINE 50 MCG TAB PO SCH (06:20)
[2016-07-18 06:46] LABS: Basophils % (A) 0 %; CH 26.6; CHCM 31.1; Eosinophils # (A) 0.1 k/uL (0-0.7); Eosinophils % (A) 1 %; HCT 28.6 % (34.0-46.0); HDW 3.98; Hypochromasia Marked; Luc # (Auto) 0.15; Luc % (Auto) 2; Lymphocytes # (A) 0.8 k/uL (1.0-4.8); Lymphocytes % (A) 11 %; MCH 27.1 pg (25.0-35.0); MCHC 31.4 g/dL (31.0-37.0); MCV 86.3 fL (80.0-100.0); Mean Platelet Volume 7.3; Monocytes # (A) 0.3 k/uL (0-1.0); Monocytes % (A) 5 %; Neutrophils % (A) 82 %; Poikilocytosis Slight; RBC 3.32 m/uL (3.80-5.40); RDW 15.1 % (11.5-15.5); WBC 7.4 k/uL (3.8-10.6); WBC (Perox) 7.59
[2016-07-18 07:27] LABS: Blood Urea Nitrogen 36 mg/dL (7-17); Calcium 8.8 mg/dL (8.4-10.2); Chloride 93 mmol/L (98-107); Glucose 104 mg/dL (74-99); Magnesium 1.8 mg/dL (1.6-2.3); Non-African American GFR(MDRD) 59 (>60 ml/min/1.73 sqM); Potassium 3.5 mmol/L (3.5-5.1); Sodium 141 mmol/L (137-145)
[2016-07-18] MEDS: BUDESONIDE 0.5 MG/2 ML NEBU INHALATION SCH ×2 (07:30→19:50)
[2016-07-18 07:33] LABS: Anion Gap 6 mmol/L
[2016-07-18 07:36] LABS: Carbon Dioxide 42 mmol/L (22-30)
[2016-07-18] MEDS: ISOSORBIDE MONONITRATE ER 30 MG TAB.ER.24H PO SCH (10:23)
[2016-07-18] MEDS: CITALOPRAM HYDROBROMIDE 10 MG TAB PO SCH (10:23)
[2016-07-18] MEDS: IPRATROPIUM BROMIDE 0.06% NASAL SPRAY (15 ML) EA NOSTRIL SCH ×4 (10:23→20:58)
[2016-07-18] MEDS: MEGESTROL 400 MG/10 ML CUP PO SCH (10:24)
[2016-07-18] MEDS: METOPROLOL TARTRATE 25 MG TAB PO SCH ×2 (10:24→20:58)
[2016-07-18] MEDS: SUCRALFATE 1 GM TAB PO SCH ×4 (10:25→20:58)
--- NOTE | 2016-07-18 12:07 | P.PN ---
Subjective this is a pleasant 81-year-old lady patient of Dr. Alvarez, Dr. Gan , She has underlying history of chronic atrial fibrillation, COPD, CHF, hypothyroidism and hypertension chronic anticoagulation with Xarelto, COPD, diastolic CHF, hypothyroidism, chronic hypoxemic respiratory failure with O2 from pulmonary fibrosis currently at [facility] for skilled rehabilitation, she was sent into the emergency room secondary to increasing shortness of breath and was noted to have pulmonary edema based on the x-ray performed at [facility]. He was seen in emergency room and was noted to have acute anemia with at least a hemoglobin drop of 2.5 g in 3 weeks, she is chronically on Xarelto. Patient was noted to be Hemoccult positive, and anticoagulation is currently on hold with consultations to cardiology and pulmonary as well as gastroenterology . Patient denies any aspirate events she requires mechanical soft diet, She was last admitted from our facility 06/19/2016 to secondary to difficulty in breathing at that time echocardiogram showed ejection fraction of 55-60%, moderate pulmonary hypertension with moderate concentric LVH, mild aortic valve sclerosis without stenosis, severe mitral regurgitation, LA size dilated 4.0, anterior atrial septal aneurysm and was discharged to [facility] 07/16: Patient's respiratory status remains poor. Cardiology has recommended continuing IV Lasix for another [address] Elizabeth Markham has evaluated the patient with no plan for intervention at this point. Speech therapy has been added and Megace added for poor appetite. 07/17: Speech therapy has evaluated and she is continued on mechanical altered dysphagia diet. She is eating about 25% of her lunch. No choking was noted. Hemoglobin 8.7 and iron studies ordered. Cardiology has recommended continued IV Lasix for another 24 hour. Nitropaste was discontinued. She has been seen by Dr. Johnson tomorrow and she is not a candidate for endoscopy evaluation at this time. 07/18: CO2 is up to 42. Hemoglobin is 9 with no noted active bleeding. Iron 16 , TIBC 263, saturation 6.1. Ferrlicit ordered x1 dose. No fevers. Blood culture showing no growth at 48 hours. She is currently on IV Lasix 20 mg every 8 hours and will be resumed back on oral dose of Bumex tomorrow. Objective - Vital Signs Vital signs: Vital Signs Temp 96.7 F L 07/18/16 07:39 Pulse 62 07/18/16 08:15 Resp 22 07/18/16 08:15 BP 112/57 07/18/16 07:39 Pulse Ox 97 07/18/16 07:39 Intake & Output 07/17/16 07/18/16 07/18/16 18:59 06:59 18:59 Intake Total 340 160 Output Total 550 Balance 340 -390 Weight 49.5 kg Intake: IV 140 160 NS 140 160 Oral 200 Output: Urine 550 Other: Voiding Method Bedpan Bedside Commode Bedside Commode # Voids 1 # Bowel Movements 1 - Exam General appearance: cooperative, thin (Frail looking) - EENT Eyes: anicteric sclerae, EOMI, PERRLA, poor dentition ENT: hearing grossly normal, NA/AT - Neck Neck: normal ROM - Respiratory Respiratory: bilateral: diminished, rales, prolonged expiration, negative: CTA, dullness, rhonchi - Cardiovascular Rhythm: irregularly irregular Heart sounds: normal: S1 Abnormal Heart Sounds: systolic murmur - Gastrointestinal General gastrointestinal: soft, tenderness (generalized) - Integumentary Integumentary: decreased turgor, normal, normal turgor - Neurologic Neurologic: CNII-XII intact - Musculoskeletal Musculoskeletal: generalized weakness - Psychiatric Psychiatric: A&O x's 3, appropriate affect - Labs CBC & Chem 7: 07/18/16 06:10 07/18/16 06:10 Labs: Abnormal Lab Results - Last 24 Hours (Table) 07/17/16 07/17/16 07/18/16 Range/Units 02:30 05:48 06:10 RBC 3.32 L (3.80-5.40) m/uL Hgb 9.0 L (11.4-16.0) gm/dL Hct 28.6 L (34.0-46.0) % Lymphocytes # 0.8 L (1.0-4.8) k/uL Retic Count 4.7 H (0.5-2.0) % Chloride (98-107) mmol/L Carbon Dioxide (22-30) mmol/L BUN (7-17) mg/dL Glucose (74-99) mg/dL Iron 16 L (37-170) ug/dL TIBC 263 L (265-497) ug/dL % Saturation 6.1 L (20-50) % 07/18/16 Range/Units 06:10 RBC (3.80-5.40) m/uL Hgb (11.4-16.0) gm/dL Hct (34.0-46.0) % Lymphocytes # (1.0-4.8) k/uL Retic Count (0.5-2.0) % Chloride 93 L (98-107) mmol/L Carbon Dioxide 42 H* (22-30) mmol/L BUN 36 H (7-17) mg/dL Glucose 104 H (74-99) mg/dL Iron (37-170) ug/dL TIBC (265-497) ug/dL % Saturation (20-50) % Assessment and Plan Plan: 1. Shortness of breath multifactorial secondary to pulmonary fibrosis, COPD exacerbation pulmonary hypertension and acute on chronic diastolic heart failure. As well as pulmonary edema. Continue IV Lasix 20 mg every 8 hours changed to Bumex, nebulized treatments mainly on the beta agonist. She currently is on maintenance Pulmicort 0.5 mg twice a day consult to Dr. ARMANDO Rayo cardiology. 2. Acute blood loss anemia patient's on anticoagulation which has to be held, significant for gram blood loss anemia noted 3 weeks, consults were made with Dr. Isbell from gastroenterology, Xarelto is on hold hemoglobin to be titrated, might need blood transfusion, iron studies to be obtained. Ferrlicit x1. 3. Pulmonary fibrosis currently on nebulized Pulmicort 4. Dehydration with CKD stage II, acute kidney failure previous creatinine was 0.83 06/23/2016 admitting creatinine was 1.54 5. Acute on chronic hypoxic respiratory failure on maintenance 2 L O2 at home by nasal cannula 6. Severe mitral regurgitation and mild mitral valve prolapse cardiology will be seeing the patient no plans for surgical intervention at this time 7. Hyperglycemia with no previous diagnosis of diabetes mellitus most likely related to steroid use. Hemoglobin A1c will be obtained 8. BMI of 16 with severe protein calorie malnutrition supplement boost will be ordered 9. Tremors with essential tremors at suspected patients at risk for falls patient was seen by physical therapy baseline would be walkerassist. Expected discharged to skilled [facility] 10. Recent falls without any traumatic complications. Since and by physical therapy requiring walker assist patient currently is on anticoagulation and needs to be monitored closely for further needs to discontinue these should be risk outweighed the benefits 11. GERD on maintenance Carafate 12. CAD with prior [place] in 1985 13. Hypothyroidismon levothyroxine 50 g daily 14. Chronic anticoagulation using Xarelto for A. fib 15. 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 Consult with Dr. Elizabeth Markham added. From [facility] she had been on mechanical soft diet aspiration precautions 16. History of Hyperglycemia steroid induced, no recent hemoglobin A1c, last hemoglobin A1c January 2016 at 5.9 17. CODE STATUS DO NOT RESUSCITATE 18. Discharge planning expected return to [facility] upon discharge from our facility 19. Prognosis guarded 20. Low BMI under 19, severe protein calorie malnutrition supplements as ordered at 3 times a day. Megace added for appetite 21. Elevated liver function tests most likely secondary to CHF Discharge plan: [facility] next week Impression and plan of care have been directed as dictated by the signing physician. Gillian Ross nurse practitioner acting as scribe for signing physician. Time with Patient: Greater than 30
[2016-07-18] MEDS: [UNRECOGNIZED DRUG - OTHER] BOTH EYES SCH ×5 (12:27→15:20)
[2016-07-18] MEDS ORDERED: SODIUM FERRIC GLUCONAT-SUCROSE 125 MG in SODIUM CHLORIDE 0.9% 100 ML IVPB ONE (12:30)
[2016-07-18 15:24] VITALS: BMI 19.3
[2016-07-18] MEDS: DIAZEPAM 5 MG TAB PO SCH (20:58)
[2016-07-19 05:23] VITALS: RESP 20
[2016-07-19] MEDS: LEVOTHYROXINE 50 MCG TAB PO SCH (06:45)
[2016-07-19 06:50] LABS: CH 26.3; CHCM 30.8; HCT 28.3 % (34.0-46.0); HDW 4.06; HGB 8.7 gm/dL (11.4-16.0); Hypochromasia Marked; MCH 26.6 pg (25.0-35.0); MCHC 30.9 g/dL (31.0-37.0); Mean Platelet Volume 8.3; Poikilocytosis Moderate; RBC 3.29 m/uL (3.80-5.40); RDW 14.8 % (11.5-15.5); WBC 8.6 k/uL (3.8-10.6)
[2016-07-19] MEDS: BUDESONIDE 0.5 MG/2 ML NEBU INHALATION SCH (07:20)
[2016-07-19 07:22] LABS: ALT 34 U/L (9-52); AST 22 U/L (14-36); Alkaline Phosphatase 93 U/L (38-126); Anion Gap 7 mmol/L; Blood Urea Nitrogen 34 mg/dL (7-17); Calcium 9.1 mg/dL (8.4-10.2); Carbon Dioxide 39 mmol/L (22-30); Chloride 95 mmol/L (98-107); Glucose 89 mg/dL (74-99); Non-African American GFR(MDRD) >60 (>60 ml/min/1.73 sqM); Potassium 3.4 mmol/L (3.5-5.1); Sodium 141 mmol/L (137-145); Total Bilirubin 0.4 mg/dL (0.2-1.3); Total Protein 5.6 g/dL (6.3-8.2)
[2016-07-19] MEDS: IPRATROPIUM BROMIDE 0.06% NASAL SPRAY (15 ML) EA NOSTRIL SCH (08:21)
[2016-07-19] MEDS: METOPROLOL TARTRATE 25 MG TAB PO SCH (08:21)
[2016-07-19] MEDS: SUCRALFATE 1 GM TAB PO SCH (08:21)
[2016-07-19] MEDS: ISOSORBIDE MONONITRATE ER 30 MG TAB.ER.24H PO SCH (08:21)
[2016-07-19] MEDS: MEGESTROL 400 MG/10 ML CUP PO SCH (08:21)
[2016-07-19] MEDS: CITALOPRAM HYDROBROMIDE 10 MG TAB PO SCH (08:21)
[2016-07-19 08:32] VITALS: BP 122/69; PULSE 75; TEMP 97.6
[2016-07-19] MEDS ORDERED: BUMETANIDE 1 MG TAB PO SCH (09:00)
[2016-07-21] MEDS ORDERED: BUMETANIDE 1 MG TAB PO SCH (09:00)
--- NOTE | 2016-08-01 14:40 | P.DS ---
Providers Date of admission: 07/15/16 12:53 Expected date of discharge: 07/19/16 Attending physician: Jumana Rios Consults: 07/15/16 17:55 Consult Physician Routine Consulting Provider: Marshall Hunter Consult Reason/Comments: blood loss anemia GIB Do you want consulting provider notified?: Yes Primary care physician: Erica Alvarez [facility] Course: this is a pleasant 81-year-old lady patient of Dr. Alvarez, Dr. Gan , She has underlying history of chronic atrial fibrillation, COPD, CHF, hypothyroidism and hypertension chronic anticoagulation with Xarelto, COPD, diastolic CHF, hypothyroidism, chronic hypoxemic respiratory failure with O2 from pulmonary fibrosis currently at [facility] for skilled rehabilitation, she was sent into the emergency room secondary to increasing shortness of breath and was noted to have pulmonary edema based on the x-ray performed at [facility]. He was seen in emergency room and was noted to have acute anemia with at least a hemoglobin drop of 2.5 g in 3 weeks, she is chronically on Xarelto. Patient was noted to be Hemoccult positive, and anticoagulation is currently on hold with consultations to cardiology and pulmonary as well as gastroenterology . Patient denies any aspirate events she requires mechanical soft diet, She was last admitted from our facility 06/19/2016 to secondary to difficulty in breathing at that time echocardiogram showed ejection fraction of 55-60%, moderate pulmonary hypertension with moderate concentric LVH, mild aortic valve sclerosis without stenosis, severe mitral regurgitation, LA size dilated 4.0, anterior atrial septal aneurysm and was discharged to [facility] 07/16: Patient's respiratory status remains poor. Cardiology has recommended continuing IV Lasix for another [address] Elizabeth Markham has evaluated the patient with no plan for intervention at this point. Speech therapy has been added and Megace added for poor appetite. 07/17: Speech therapy has evaluated and she is continued on mechanical altered dysphagia diet. She is eating about 25% of her lunch. No choking was noted. Hemoglobin 8.7 and iron studies ordered. Cardiology has recommended continued IV Lasix for another 24 hour. Nitropaste was discontinued. She has been seen by Dr. Johnson tomorrow and she is not a candidate for endoscopy evaluation at this time. 07/18: CO2 is up to 42. Hemoglobin is 9 with no noted active bleeding. Iron 16 , TIBC 263, saturation 6.1. Ferrlicit ordered x1 dose. No fevers. Blood culture showing no growth at 48 hours. She is currently on IV Lasix 20 mg every 8 hours and will be resumed back on oral dose of Bumex tomorrow. 07/19: Patient has been seen by roof panel hanger and noted no active ongoing bleeding. No plan for intervention. Hemoglobin at the time of discharge is 8.7. Patient will be discharged home today in stable condition. Discharge diagnoses: 1. Shortness of breath multifactorial secondary to pulmonary fibrosis, COPD exacerbation, pulmonary hypertension and acute on chronic diastolic heart failure. As well as pulmonary edema. 2. Acute blood loss anemia 3. Pulmonary fibrosis 4. Dehydration with CKD stage II, acute kidney failure 5. Acute on chronic hypoxic respiratory failure 6. Severe mitral regurgitation and mild mitral valve prolapse 7. Hyperglycemia with no previous diagnosis of diabetes mellitus most likely related to steroid use. 8. BMI of 16 with severe protein calorie malnutrition 9. Tremors with essential tremors 10. Recent falls without any traumatic complications. 11. GERD 12. CAD with prior [place] in 1985 13. Hypothyroidismon 14. Chronic anticoagulation 15. 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 16. History of Hyperglycemia steroid induced 17. Low BMI under 19, severe protein calorie malnutrition 18. Elevated liver function tests most likely secondary to CHF Discharge plan: [facility] Impression and plan of care have been directed as dictated by the signing physician. Gillian Ross nurse practitioner acting as scribe for signing physician. Patient Condition at Discharge: Good Plan - Discharge Summary Discharge Medication List Budesonide [Pulmicort] 0.5 mg INHALATION RT-BID 08/22/13 [History] Citalopram Hydrobromide [CeleXA] 10 mg PO DAILY 08/22/13 [History] Levothyroxine Sodium [Levoxyl] 50 mcg PO DAILY 08/22/13 [History] Epinastine Eye Drops 1 drop BOTH EYES BID 01/29/16 [History] Sucralfate [Carafate] 1 gm PO QID 01/29/16 [History] Bumetanide [BUMEX] 1 mg PO SUTUTHSA 01/30/16 [History] Nitroglycerin Sl Tabs [Nitrostat] 0.4 mg SUBLINGUAL Q5M PRN #25 tab 02/02/16 [Rx ] Bumetanide [BUMEX] 2 mg PO MOWEFR 06/18/16 [History] Polyethylene Glycol 3350 [Miralax] 17 gm PO HS 06/18/16 [History] cloNIDine HCL [Catapres] 0.1 mg PO DAILY PRN 06/18/16 [History] Metoprolol Tartrate [Lopressor] 25 mg PO BID 06/21/16 [History] Isosorbide Mononitrate ER [Imdur] 30 mg PO DAILY #30 tab 06/23/16 [Rx] Aspirin 81 mg PO DAILY@17007/15/16 [History] Bisacodyl [Dulcolax] 10 mg RECTAL DAILY PRN 07/15/16 [History] Diazepam [Valium] 10 mg PO BID PRN 07/15/16 [History] Diazepam [Valium] 10 mg PO DAILY@2100 07/15/16 [History] Ensure Clear 1 can PO TID-W/MEALS 07/15/16 [History] HYDROcodone/APAP 5-325MG [[place] 5-325] 1 tab PO Q6HR PRN 07/15/16 [History] Ipratropium [place] 0.06%Nasal [Atrovent Nasal 0.06%] 2 spray EA NOSTRIL TID 02/20 [History] Magnesium Hydroxide [Milk of Magnesia] 2,400 mg PO DAILY PRN 07/15/16 [History] Na Phos,M-B/Na Phos,Di-Ba [Fleet Adult] 133 ml RECTAL DAILY PRN 07/15/16 [ History] Natural Balance Tears 2 drops BOTH EYES DAILY PRN 07/15/16 [History] Ondansetron [Zofran] 4 mg PO Q6H PRN 07/15/16 [History] Rivaroxaban [Xarelto] 15 mg PO DAILY@1700 07/15/16 [History] Follow up Appointment(s)/Referral(s): Erica Alvarez MD [Primary Care Provider] - 1-2 days Discharge Disposition: TRANSFER TO SNF/ECF
== END 2016-07-19 12:52 | DRG 291 ==
LOC: EC 08:40 → 6SEL 12:53
PROVIDERS: ADMIT Family Medicine; ATTEND Family Medicine
DX: I13.0 Hypertensive heart and chronic kidney disease with heart failure and stage 1 through stage 4 chronic kidney disease, or unspecified chronic kidney disease (principal); E43 Unspecified severe protein-calorie malnutrition; J96.21 Acute and chronic respiratory failure with hypoxia; N17.9 Acute kidney failure, unspecified; I27.2 Other secondary pulmonary hypertension; I48.1 Persistent atrial fibrillation; J44.1 Chronic obstructive pulmonary disease with (acute) exacerbation; D62 Acute posthemorrhagic anemia; J84.10 Pulmonary fibrosis, unspecified; I50.33 Acute on chronic diastolic (congestive) heart failure; Z68.1 Body mass index [BMI] 19.9 or less, adult; E86.0 Dehydration; I48.2 Chronic atrial fibrillation; E03.9 Hypothyroidism, unspecified; E78.5 Hyperlipidemia, unspecified; F32.9 Major depressive disorder, single episode, unspecified; F41.9 Anxiety disorder, unspecified; G25.0 Essential tremor; I25.10 Atherosclerotic heart disease of native coronary artery without angina pectoris; I25.2 Old myocardial infarction; I08.0 Rheumatic disorders of both mitral and aortic valves; I49.3 Ventricular premature depolarization; K21.9 Gastro-esophageal reflux disease without esophagitis; K22.0 Achalasia of cardia; N18.2 Chronic kidney disease, stage 2 (mild); Z66 Do not resuscitate; Z79.01 Long term (current) use of anticoagulants; Z79.82 Long term (current) use of aspirin; Z79.899 Other long term (current) drug therapy; Z82.49 Family history of ischemic heart disease and other diseases of the circulatory system; Z83.3 Family history of diabetes mellitus; Z87.891 Personal history of nicotine dependence; Z99.81 Dependence on supplemental oxygen; I34.1 Nonrheumatic mitral (valve) prolapse; I34.0 Nonrheumatic mitral (valve) insufficiency; R73.9 Hyperglycemia, unspecified; T38.0X5A Adverse effect of glucocorticoids and synthetic analogues, initial encounter
CPT/HCPCS: 36415; 71020; 80048; 80053; 81001; 82272; 82550; 82553; 82728; 83036; 83540; 83550; 83605; 83735; 83880; 84132; 84484; 85025; 85027; 85045; 85610; 85730; 86850; 86900; 86901; 87040; 93005; 94640; 94760; 96374; 99291